=== PATIENT | female | born 1935 | race Caucasian/White ===

== ENCOUNTER 2016-03-28 17:53 | Emergency (ER) | payer MEDICARE ==
[2016-03-28] MEDS ORDERED: RX INFO: IV CONTRAST WAS GIVEN 1 EACH MISC MISCELLANE PRN ×2 (19:13→21:00)
[2016-03-28] MEDS ORDERED: SODIUM CHLORIDE 0.9% 1,000 ML IV STA (19:13)
--- NOTE | 2016-03-28 19:22 | ED ---
Recheck HPI - General Chief Complaint: Recheck/Abnormal Lab/Rx Stated Complaint: abd pain/diarrhea Time Seen by Provider: 03/28/16 18:57 Source: patient Mode of arrival: ambulatory Limitations: no limitations - History of Present Illness Initial Comments: Patient is a 80-year-old female presenting to the emergency room chief complaint of diarrhea for 5 days, and multiple episodes of vomiting. Patient reports that she's had a poor appetite. Patient states that she has not vomited for the past 2 days. Patient reports that the diarrhea and has continued with mild improvement of the diarrhea. Patient reports that she's been able to tolerate small amounts of water and bland foods. She denies any recent antibiotic use, mucinous stool, blood in the stool. Patient reports that she's been able to urinate. Patient states she is attempted Pepto-Bismol with some improvement to the diarrhea. Patient was encouraged to come to the emergency room after being checked out by medics breath. They did an abdominal x-ray which showed a possible bowel obstruction. Patient has a past surgical history significant for cholecystectomy, appendectomy and partial hysterectomy. Patient's past medical history significant for hypertension pressure and glaucoma. - Related Data Home Medications Medication Instructions Recorded Confirmed Calcium With Vitamin D 600 mg PO BID 09/19/13 03/28/16 Lisinopril-Hctz 20-12.5 mg 1 tab PO BID 09/19/13 03/28/16 [Zestoretic 20-12.5] Primidone [Mysoline] 125 mg PO BID 09/19/13 03/28/16 Fish Oil/Dha/Epa [Fish Oil 1,200 1 cap PO BID 03/23/14 03/28/16 mg Fish Oil] Fluticasone Nasal [place] [Flonase 2 spray NASAL DAILY 03/28/16 03/28/16 Nasal [place]] Propranolol HCl [Inderal Xl] 120 mg PO BID 03/28/16 03/28/16 Propylene Glycol/Peg 400/Pf 1 drop OPHTHALMIC DAILY PRN 03/28/16 03/28/16 [Systane 0.3-0.4% Eye Drops] Timolol 0.5% Ophth Soln [Timoptic 1 drop BOTH EYES DAILY 03/28/16 03/28/16 0.5% Ophth Soln] Vision Supplement (Unknown) 1 tab PO BID 03/28/16 03/28/16 Previous Rx's Medication Instructions Recorded Dicyclomine [Bentyl] 10 mg PO TID #15 capsule 03/28/16 Ondansetron [Zofran] 4 mg PO Q8HR PRN #8 tab 03/28/16 Allergies Allergy/AdvReac Type Severity Reaction Status Date / Time sulfamethoxazole Allergy Rash/Hives Verified 03/28/16 19:40 [From Bactrim] trimethoprim [From Bactrim] Allergy Rash/Hives Verified 03/28/16 19:40 Review of Systems ROS Statement: Those systems with pertinent positive or pertinent negative responses have been documented in the HPI. ROS Other: All systems not noted in ROS Statement are negative. Past Medical History Past Medical History: Hypertension History of Any Multi-Drug Resistant Organisms: None Reported Past Surgical History: Cholecystectomy, Hysterectomy Additional Past Surgical History / Comment(s): Hx. foot surgery and nasal surgery Past Anesthesia/Blood Transfusion Reactions: No Reported Reaction Past Psychological History: No Psychological Hx Reported Smoking Status: Never smoker Past Alcohol Use History: None Reported Past Drug Use History: None Reported General Exam - General Exam Comments Initial Comments: Patient is a pleasant well-appearing 80-year-old female. She does not appear to be in any acute distress. Limitations: no limitations General appearance: alert, in no apparent distress Head exam: Present: atraumatic, normocephalic, normal inspection Eye exam: Present: normal appearance, PERRL, EOMI. Absent: scleral icterus, conjunctival injection, periorbital swelling ENT exam: Present: normal exam, mucous membranes moist Neck exam: Present: normal inspection. Absent: tenderness, meningismus, lymphadenopathy Respiratory exam: Present: normal lung sounds bilaterally. Absent: respiratory distress, wheezes, rales, rhonchi, stridor Cardiovascular Exam: Present: regular rate, normal rhythm, normal heart sounds. Absent: systolic murmur, diastolic murmur, rubs, gallop, clicks GI/Abdominal exam: Present: soft, tenderness (Mild tenderness in left upper quadrant and epigastric region.), normal bowel sounds. Absent: distended, guarding, rebound, rigid Extremities exam: Present: normal inspection, full ROM, normal capillary refill. Absent: tenderness, pedal edema, joint swelling, calf tenderness Back exam: Present: normal inspection Neurological exam: Present: alert, oriented X3, CN II-XII intact Psychiatric exam: Present: normal affect, normal mood Skin exam: Present: warm, dry, intact, normal color. Absent: rash Course Vital Signs 03/28/16 03/28/16 03/29/16 18:25 23:25 00:43 Temperature 97.4 F L 97.7 F 97.8 F Pulse Rate 60 64 60 Respiratory 18 20 18 Rate Blood Pressure 163/71 162/78 147/78 O2 Sat by Pulse 98 99 98 Oximetry Medical Decision Making - Medical Decision Making Patient is an 80-year-old female presenting to emergency Department with a chief complaint of vomiting and diarrhea for the past 5 days. Patient was sent from [facility]. At [facility] Labs were obtained and revealed a negative urinalysis as well as a negative Hemoccult test. The report of the abdominal x- ray from the [facility] did reveal no free air, no fluid level changes. Stepladder in appearance in the right lower quadrant. There is also increased bowel looking to the left mid quadrant which struck to be possible ileus or an obstruction. At this time patient's labs were obtained and patient was given 1 L bolus. Labs show dehydration as well as poor renal function. Patient will be given a CT abdomen and pelvis owth oral contrast. Patient was reelvaluated and was resting comfortably and talking with family. CT shows no acute illeus or obstruction, no signs of acute abnormalities besides Evidence of enteritis. Patient Cdiff was also negative. Patient will be discharged home with Rx for Zofran and bentyl, and instructed to remain hydrated. Return parameters discussed and treatment plan understood. - Lab Data Result diagrams: 03/28/16 19:25 03/28/16 19:25 Lab Results 03/28/16 03/28/16 03/28/16 Range/Units 19:25 19:25 19:25 WBC 6.8 (3.8-10.6) k/uL RBC 3.77 L (3.80-5.40) m/uL Hgb 12.6 (11.4-16.0) gm/dL Hct 36.1 (34.0-46.0) % MCV 95.7 (80.0-100.0) fL MCH 33.3 (25.0-35.0) pg MCHC 34.8 (31.0-37.0) g/dL RDW 12.8 (11.5-15.5) % Plt Count 233 (150-450) k/uL Neutrophils % 69 % Lymphocytes % 17 % Monocytes % 8 % Eosinophils % 2 % Basophils % 0 % Neutrophils # 4.7 (1.3-7.7) k/uL Lymphocytes # 1.1 (1.0-4.8) k/uL Monocytes # 0.5 (0-1.0) k/uL Eosinophils # 0.1 (0-0.7) k/uL Basophils # 0.0 (0-0.2) k/uL Sodium 134 L (137-145) mmol/L Potassium 3.5 (3.5-5.1) mmol/L Chloride 95 L (98-107) mmol/L Carbon Dioxide 26 (22-30) mmol/L Anion Gap 13 mmol/L BUN 24 H (7-17) mg/dL Creatinine 1.40 H (0.52-1.04) mg/dL Est GFR (MDRD) Af Amer 44 (>60 ml/min/1.73 sqM) Est GFR (MDRD) Non-Af 36 (>60 ml/min/1.73 sqM) Glucose 89 (74-99) mg/dL Plasma Lactic Acid Yao 0.7 (0.7-2.0) mmol/L Calcium 9.5 (8.4-10.2) mg/dL Total Bilirubin 0.6 (0.2-1.3) mg/dL AST 51 H (14-36) U/L ALT 57 H (9-52) U/L Alkaline Phosphatase 92 (38-126) U/L Total Protein 7.2 (6.3-8.2) g/dL Albumin 4.2 (3.5-5.0) g/dL Amylase 87 (30-110) U/L Lipase 103 (23-300) U/L Urine Color Urine Appearance (Clear) Urine pH (5.0-8.0) Ur Specific [place] (1.001-1.035) Urine Protein (Negative) Urine Glucose (UA) (Negative) Urine Ketones (Negative) Urine Blood (Negative) Urine Nitrate (Negative) Urine Bilirubin (Negative) Urine Urobilinogen (<2.0) mg/dL Ur Leukocyte Esterase (Negative) Urine RBC (0-5) /hpf Urine WBC (0-5) /hpf Ur Squamous Epith Cells (0-4) /hpf Urine Bacteria (None) /hpf Hyaline Casts (0-2) /lpf Urine Mucus (None) /hpf C. difficile (EIA) Intrp (Negative) 03/28/16 03/28/16 Range/Units 19:25 23:40 WBC (3.8-10.6) k/uL RBC (3.80-5.40) m/uL Hgb (11.4-16.0) gm/dL Hct (34.0-46.0) % MCV (80.0-100.0) fL MCH (25.0-35.0) pg MCHC (31.0-37.0) g/dL RDW (11.5-15.5) % Plt Count (150-450) k/uL Neutrophils % % Lymphocytes % % Monocytes % % Eosinophils % % Basophils % % Neutrophils # (1.3-7.7) k/uL Lymphocytes # (1.0-4.8) k/uL Monocytes # (0-1.0) k/uL Eosinophils # (0-0.7) k/uL Basophils # (0-0.2) k/uL Sodium (137-145) mmol/L Potassium (3.5-5.1) mmol/L Chloride (98-107) mmol/L Carbon Dioxide (22-30) mmol/L Anion Gap mmol/L BUN (7-17) mg/dL Creatinine (0.52-1.04) mg/dL Est GFR (MDRD) Af Amer (>60 ml/min/1.73 sqM) Est GFR (MDRD) Non-Af (>60 ml/min/1.73 sqM) Glucose (74-99) mg/dL Plasma Lactic Acid Yao (0.7-2.0) mmol/L Calcium (8.4-10.2) mg/dL Total Bilirubin (0.2-1.3) mg/dL AST (14-36) U/L ALT (9-52) U/L Alkaline Phosphatase (38-126) U/L Total Protein (6.3-8.2) g/dL Albumin (3.5-5.0) g/dL Amylase (30-110) U/L Lipase (23-300) U/L Urine Color Yellow Urine Appearance Cloudy H (Clear) Urine pH 5.5 (5.0-8.0) Ur Specific [place] 1.012 (1.001-1.035) Urine Protein Trace H (Negative) Urine Glucose (UA) Negative (Negative) Urine Ketones Trace H (Negative) Urine Blood Negative (Negative) Urine Nitrate Negative (Negative) Urine Bilirubin Negative (Negative) Urine Urobilinogen <2.0 (<2.0) mg/dL Ur Leukocyte Esterase Large H (Negative) Urine RBC 3 (0-5) /hpf Urine WBC 56 H (0-5) /hpf Ur Squamous Epith Cells 4 (0-4) /hpf Urine Bacteria Rare H (None) /hpf Hyaline Casts 42 H (0-2) /lpf Urine Mucus Occasional H (None) /hpf C. difficile (EIA) Intrp Negative (Negative) - Radiology Data Radiology results: report reviewed CT abdomen and pelvis reveals possible gastroenteritis changes and Colace changes. Small hiatal hernia is noted. Gallbladders surgically absent. The appendix was not visualized. No significant inflammation is noticed in the appendix area. The CT report was read by Dr. Diamante velazco. Disposition Clinical Impression: Diarrhea, Gastroenteritis Disposition: HOME SELF-CARE Condition: Good Instructions: Acute Nausea and Vomiting (ED), Gastroenteritis (ED) Additional Instructions: Patient instructed to remain hydrated. Follow-up with primary care physician. Return to the [facility] if any alarming signs or symptoms occur. Prescriptions: Dicyclomine [Bentyl] 10 mg PO TID #15 capsule Ondansetron [Zofran] 4 mg PO Q8HR PRN #8 tab PRN Reason: Pain Referrals: Martin Crespo MD [Primary Care Provider] - 1-2 days Time of Disposition: 23:47
[2016-03-28 20:45] LABS: Basophils % (A) 0 %; CH 33.6; CHCM 35.3; Eosinophils # (A) 0.1 k/uL (0-0.7); Eosinophils % (A) 2 %; HCT 36.1 % (34.0-46.0); HDW 2.41; HGB 12.6 gm/dL (11.4-16.0); Luc # (Auto) 0.29; Luc % (Auto) 4; Lymphocytes # (A) 1.1 k/uL (1.0-4.8); Lymphocytes % (A) 17 %; MCH 33.3 pg (25.0-35.0); MCHC 34.8 g/dL (31.0-37.0); MCV 95.7 fL (80.0-100.0); Mean Platelet Volume 7.6; Monocytes # (A) 0.5 k/uL (0-1.0); Monocytes % (A) 8 %; Neutrophils # (A) 4.7 k/uL (1.3-7.7); Neutrophils % (A) 69 %; RBC 3.77 m/uL (3.80-5.40); RDW 12.8 % (11.5-15.5); WBC 6.8 k/uL (3.8-10.6); WBC (Perox) 6.83
[2016-03-28 20:50] LABS: Calcium 9.5 mg/dL (8.4-10.2); Potassium 3.5 mmol/L (3.5-5.1); Total Bilirubin 0.6 mg/dL (0.2-1.3); Total Protein 7.2 g/dL (6.3-8.2)
[2016-03-28] MEDS ORDERED: IOHEXOL 350 MG/ML 25 ML BOTTLE (ORAL USE) PO PRN (21:00)
[2016-03-28 21:18] LABS: Appearance,Urine Cloudy (Clear); Bacteria,Urine Rare /hpf; Bilirubin,Urine Negative (Negative); Glucose,Urine (UA) Negative (Negative); Ketones,Urine Trace (Negative); Leukocyte Esterase,Urine Large (Negative); Mucus,Urine Occasional /hpf; Nitrite,Urine Negative (Negative); PH, Urine 5.5 (5.0-8.0); Particle Count 9571; Protein,Urine Trace (Negative); RBC,Urine 3 /hpf (0-5); Specific Gravity,Urine 1.012 (1.001-1.035); Squamous Epithelial Cell,Urine 4 /hpf (0-4); UA Billing (MACRO vs. MICRO) MICRO; Urobilinogen,Urine <2.0 mg/dL (<2.0); WBC,Urine 56 /hpf (0-5)
--- NOTE | 2016-03-28 23:38 | CT ---
EXAMINATION TYPE: CT abdomen pelvis wo con DATE OF EXAM: 03/28/2016 10:50 PM COMPARISON: NONE HISTORY: Nausea, vomiting and diarrhea x 4-[address] DLP: 214.10 mGycm Automated exposure control for dose reduction was used. TECHNIQUE: Helical acquisition of images was performed from the lung bases through the pelvis. Oral contrast was given. No IV contrast. FINDINGS: LUNG BASES: No significant abnormality is appreciated. Minor pericardial effusion of 9 mm thickness i s noted anteriorly in the axial image 4. LIVER/GB: No significant abnormality is appreciated in the liver. Gallbladder is not well visualized. Gallbladder is probably contracted or surgically absent. Surgical clips are noted in the anterior ri ght upper abdomen. PANCREAS: No significant abnormality is seen. SPLEEN: No significant abnormality is seen. ADRENALS: No significant abnormality is seen. KIDNEYS: The left kidney is smaller in size. Mild fullness is noted in both kidneys without definite obstructing opaque stones or hydronephrosis.. RETROPERITONEAL ADENOPATHY: None visualized atherosclerotic calcification is noted in the abdominal aorta and iliac arteries. REPRODUCTIVE ORGANS: Uterus is probably surgically absent. URINARY BLADDER: No significant abnormality is seen. PELVIC ADENOPATHY: None visualized. OSSEOUS STRUCTURES: Mild multilevel degenerative changes are present in the thoracolumbar spine. BOWEL: There is small hiatal hernia. Stomach is opacified with contrast and showed mucosal wall thick ening in the antrum area and also the duodenum showed mild mucosal wall thickening with possible baylee roenteritis changes. There is also fluid distention of colonic bowel loops with mucosal thickening in the rectosigmoid colon and also rest of the colon with mild colitis changes. Small bowel loops showe d mild fluid distention. The appendix is not visualized. No significant inflammation is noted in the appendix area. IMPRESSION: 1. POSSIBLE GASTROENTERITIS CHANGES AND COLITIS CHANGES. SMALL HIATAL HERNIA IS NOTED. 2. GALLBLADDER IS PROBABLY SURGICALLY ABSENT. 3. Appendix is not visualized. No significant inflammation is noted in the appendix area.
[2016-03-29] MEDS ORDERED: ONDANSETRON 4 MG ODT STARTER PACK 2 TAB BTL PO STA (00:32)
[2016-03-29 00:44] VITALS: BP 147/78; PULSE 60; RESP 18; TEMP 97.8
== END 2016-03-29 00:44 | disposition home or self-care (01) ==
LOC: EC 17:53
DX: K52.9 Noninfective gastroenteritis and colitis, unspecified (principal); E86.0 Dehydration; K44.9 Diaphragmatic hernia without obstruction or gangrene; I10 Essential (primary) hypertension; Z79.899 Other long term (current) drug therapy; Z79.51 Long term (current) use of inhaled steroids; H40.9 Unspecified glaucoma; Z88.1 Allergy status to other antibiotic agents; Z88.2 Allergy status to sulfonamides
CPT/HCPCS: 99284; 36415; 80053; 82150; 83605; 83690; 85025; 81001; 87040; 80299; 74176; S0119; 87324

== ENCOUNTER → 2016-04-06 | Outpatient (CLI) | payer MEDICARE ==
[~2016-04-06] MED LIST: DENOSUMAB 60 MG/ML 1 ML SYRINGE SQ ONE
[2016-04-06 10:44] VITALS: BP 152/72; PULSE 58; RESP 22; TEMP 98.6
== END | disposition home or self-care (01) ==
LOC: PROCWHC3 10:05
PROVIDERS: ATTEND Family Medicine
DX: M81.0 Age-related osteoporosis without current pathological fracture (principal)
CPT/HCPCS: 96372; J0897

== ENCOUNTER → 2016-11-01 | Outpatient (CLI) | payer MEDICARE ==
--- NOTE | 2016-11-02 09:39 | MM ---
Reason for exam: screening (asymptomatic). Last mammogram was performed 1 year and 1 month ago. History: Patient is postmenopausal. Physical Findings: A clinical breast exam by your physician is recommended on an annual basis and results should be correlated with mammographic findings. MG Screening Mammo w CAD Bilateral CC and MLO view(s) were taken. Prior study comparison: October 15, 2015, bilateral MG screening mammo w CAD. September 18, 2014, bilateral MG screening mammo w CAD. August 04, 2013, bilateral MG screening mammo w CAD. The breast tissue is heterogeneously dense. This may lower the sensitivity of mammography. No significant changes when compared with prior studies. ASSESSMENT: Negative, BI-RAD 1 RECOMMENDATION: Routine screening mammogram of both breasts in 1 year.
== END | disposition home or self-care (01) ==
LOC: RADMAMWWP 11:28
PROVIDERS: ATTEND Family Medicine
DX: Z12.31 Encounter for screening mammogram for malignant neoplasm of breast (principal)

== ENCOUNTER → 2016-12-15 | Outpatient (CLI) | payer MEDICARE ==
[2016-12-15 13:23] LABS: Blood Urea Nitrogen 17 mg/dL (7-17); Non-African American GFR(MDRD) 50 (>60 ml/min/1.73 sqM)
--- NOTE | 2016-12-15 14:33 | CT ---
EXAMINATION TYPE: CT brain wo/w con DATE OF EXAM: 12/15/2016 COMPARISON: NONE HISTORY: TIA CT DLP: 2108.4 mGycm Automated exposure control for dose reduction was used. CONTRAST: CT scan of the head is performed without and with IV Contrast, patient injected with 80 mL of Visipaq ue 320. FINDINGS: There is no abnormal enhancing mass or midline shift identified. The ventricles and sulci are within normal limits in size. Changes of chronic sinusitis noted. There is moderate generalized degenerative change. Periventricula r low-attenuation suggestive of remote microvascular ischemia. No enhancing mass. Intracranial athero sclerotic changes noted. Changes of chronic sinusitis noted. Hyperostosis of the calvarium noted. IMPRESSION: 1. Degenerative and nonspecific white matter changes most typical remote microvascular ischemia. 2. Changes of chronic sinusitis.
--- NOTE | 2016-12-15 16:26 | US ---
EXAMINATION TYPE: US carotid duplex BILAT DATE OF EXAM: 12/15/2016 COMPARISON: NONE CLINICAL HISTORY: Transient Ischemic Attack G45.9. EXAM MEASUREMENTS: RIGHT: Peak Systolic Velocity (PSV) cm/sec ----- Right CCA: 62.5 ----- Right ICA: 76.4 ----- Right ECA: 57.8 ICA/CCA ratio: 1.2 RIGHT: End Diastole cm/sec ----- Right CCA: 12.7 ----- Right ICA: 19.6 ----- Right ECA: 5.0 LEFT: Peak Systolic Velocity (PSV) cm/sec ----- Left CCA: 65.2 ----- Left ICA: 81.1 ----- Left ECA: 58.4 ICA/CCA ratio: 1.2 LEFT: End Diastole cm/sec ----- Left CCA: 17.2 ----- Left ICA: 29.3 ----- Left ECA: 58.4 VERTEBRALS (direction of flow): Right Vertebral: Antegrade Left Vertebral: Antegrade Rhythm: Normal Mild plaque, no significant stenosis seen. Intimal thickening is present. IMPRESSION: Atheromatous plaquing without significant flow-limiting stenosis. Criteria for Assigning % of Stenosis / Diameter reduction (Estimation based on the indirect measurements of the internal carotid artery velocities (ICA PSV). 1. Normal (no stenosis)=ICA PSV < 125 cm/s: ratio < 2.0: ICA EDV<40 cm/s. 2. Less than 50% stenosis=ICA PSV < 125 cm/s: ratio < 2.0: ICA EDV<40 cm/s. 3. 50 to 69% stenosis=ICA PSV of 125 to 230 cm/s: ration 2.0 ? 4.0: ICA EDV 40-100 cm/s. 4. Greater than 70% stenosis to near occlusion= ICA PSV > 230 cm/s: ratio > 4.0: ICA EDV > 100 cm/s. 5. Near occlusion= ICA PSV velocities may be low or undetectable: variable ratio and ICA EDV. 6. Total occlusion=unable to detect flow.
--- NOTE | 2016-12-15 21:47 | ECHOF ---
Referral Reason:Transient Ischemic Attack G45.9 MEASUREMENTS -------- HEIGHT: 160.0 cm WEIGHT: 52.2 kg BP: RVIDd: 2.7 cm (< 3.3) IVSd: 1.0 cm (0.6 - 1.1) LVIDd: 4.2 cm (3.9 - 5.3) LVPWd: 1.0 cm (0.6 - 1.1) IVSs: 1.6 cm LVIDs: 3.0 cm LVPWs: 1.8 cm LAESV Index (A-L): 49.78 ml/m Ao Diam: 3.0 cm (2.0 - 3.7) AV Cusp: 1.6 cm (1.5 - 2.6) LA Diam: 4.4 cm (2.7 - 3.8) MV EXCURSION: 18.742 mm (> 18.000) MV EF SLOPE: 139 mm/s (70 - 150) EPSS: 0.3 cm MV E Robert: 0.93 m/s MV DecT: 196 ms MV A Robert: 0.83 m/s MV E/A Ratio: 1.12 RAP: 5.00 mmHg RVSP: 48.91 mmHg FINDINGS -------- Sinus rhythm. This was a technically good study. The left ventricular size is normal. Left ventricular wall thickness is normal. Overall left ventricular systolic function is normal with, an EF between 55 - 60 %. The right ventricle is normal in size and function. LA is severely dilated >40 ml/m2 RA appears enlarged. Aortic valve is trileaflet and is mildly thickened. The mitral valve leaflets are mildly thickened. Qopijpel-jq-rvwscw mitral regurgitation is present. Severe tricuspid regurgitation present. There is mild to moderate pulmonary hypertension. The right ventricular systolic pressure, as measured by Doppler, is 48.91mmHg. Trace/mild (physiologic) pulmonic regurgitation. The aortic root size is normal. Normal inferior vena cava with normal inspiratory collapse consistent with estimated right atrial pressure of 5 mmHg. The pericardium is normal. CONCLUSIONS -------- 1. Sinus rhythm. 2. The mitral valve leaflets are mildly thickened. 3. Ibvfppuv-yg-cqesjs mitral regurgitation is present. 4. Severe tricuspid regurgitation present. 5. There is mild to moderate pulmonary hypertension. 6. The right ventricular systolic pressure, as measured by Doppler, is 48.91mmHg. 7. Trace/mild (physiologic) pulmonic regurgitation. 8. The aortic root size is normal. 9. Normal inferior vena cava with normal inspiratory collapse consistent with estimated right atrial pressure of 5 mmHg. 10. The pericardium is normal. 11. This was a technically good study. 12. The left ventricular size is normal. 13. Left ventricular wall thickness is normal. 14. Overall left ventricular systolic function is normal with, an EF between 55 - 60 %. 15. The right ventricle is normal in size and function. 16. LA is severely dilated >40 ml/m2 17. RA appears enlarged. 18. Aortic valve is trileaflet and is mildly thickened. [employer]: Kyara Singh RDCS
== END | disposition home or self-care (01) ==
LOC: RADCTMAIN 12:28
PROVIDERS: ATTEND Family Medicine
DX: I65.29 Occlusion and stenosis of unspecified carotid artery (principal); R90.82 White matter disease, unspecified; G31.9 Degenerative disease of nervous system, unspecified
CPT/HCPCS: 93306; 82565; 84520; 93880; 70470; 36415; Q9967

== ENCOUNTER → 2017-08-27 | Outpatient (CLI) | payer MEDICARE ==
--- NOTE | 2017-08-27 07:47 | US ---
EXAMINATION TYPE: US duplex aorta DATE OF EXAM: 08/27/2017 COMPARISON: CT CLINICAL HISTORY: I70.0 Atherosclerosis of aorta; controlled HTN EXAM MEASUREMENTS: Abdominal Aorta: Proximal: 2.0cm A/P Mid: 1.7cm A/P Distal: 1.6cm Transverse Bifurcation: 1.2cm A/P Right JAYSON and 1.1cm Transverse A/P. Intimal wall changes are noted throughout aorta and into common iliac arteries. IMPRESSION: Moderate atherosclerosis of the abdominal aorta with no sonographic evidence of abdominal aortic aneurysm.
== END | disposition home or self-care (01) ==
LOC: RADUSWWP 06:57
PROVIDERS: ATTEND Family Medicine
DX: I70.0 Atherosclerosis of aorta (principal)
CPT/HCPCS: 93979

== ENCOUNTER → 2017-12-10 | Outpatient (CLI) | payer MEDICARE ==
--- NOTE | 2017-12-10 18:19 | BD ---
EXAMINATION TYPE: Axial Bone Density DATE OF EXAM: 12/10/2017 COMPARISON: 10-15-2015 CLINICAL HISTORY: 82-year-old female postmenopausal screening for osteoporosis Height: 62 IN Weight: 119 LBS FRAX RISK QUESTIONS: Secondary Osteoporosis: 3. Menopause before 45: YES AGE 39 RISK FACTORS HISTORY OF: Family History of Osteoporosis: YES MOTHER, SISTER Active: YES Diet low in dairy products/other sources of calcium: YES Postmenopausal woman: AGE 39 MEDICATIONS: Osteoporosis Medications: NOT NOW Which medication: Prolia FOSAMAX How Long: PROLIA 3 YEARS AGO. FOSAMAX FOR 2 YEARS Additional Medications: CALCIUM, VIT D, PROPRANOLOL HCL, PRIMIDONE, LISINOPRIL, FLUTICASONE, TIMOLOL, ASPIRIN, FISH OIL, VISION SUPPLEMENT, SYSTANE EYE DROPS EXAM MEASUREMENTS: Bone mineral densitometry was performed using the [employer]. Bone mineral density as measured about the Lumbar spine is: ----- L1-L4(G/cm2): 0.939 T Score Values are as follows: ----- L2: -2.4 ----- L3: -2.0 ----- L4: -1.8 ----- L1-L4: -2.0 Bone mineral density has: Increased 1.8% since study of: 10/15/2015 Bone mineral density about the R hip (g/cm2): 0.733 Bone mineral density about the L hip (g/cm2): 0.732 T Score values are as follows: -----R Neck: -2.2 -----L Neck: -2.2 -----R Total: -2.1 -----L Total: -2.1 Bone mineral density has: Decreased -3.4% since study of: 10/15/2015 IMPRESSION: Osteopenia (T Score between -2.5 and -1). There is slightly increased risk of fracture and the patient may be considered for treatment. Re-Screen 2-5 years. NOTE: T-SCORE=SD OF THE YOUNG ADULT MEAN.
--- NOTE | 2017-12-11 09:30 | MM ---
Reason for exam: screening (asymptomatic). Last mammogram was performed 1 year and 1 month ago. History: Patient is postmenopausal. Physical Findings: A clinical breast exam by your physician is recommended on an annual basis and results should be correlated with mammographic findings. MG Screening Mammo w CAD Bilateral CC and MLO view(s) were taken. Prior study comparison: November 01, 2016, bilateral MG screening mammo w CAD. October 15, 2015, bilateral MG screening mammo w CAD. There are scattered fibroglandular densities. No significant changes when compared with prior studies. ASSESSMENT: Benign, BI-RAD 2 RECOMMENDATION: Routine screening mammogram of both breasts in 1 year.
== END ==
LOC: RADMAMWWP 09:51
PROVIDERS: ATTEND Family Medicine
DX: Z12.31 Encounter for screening mammogram for malignant neoplasm of breast (principal); M85.80 Other specified disorders of bone density and structure, unspecified site; M81.0 Age-related osteoporosis without current pathological fracture
CPT/HCPCS: 77067; 77080

== ENCOUNTER → 2019-02-10 | Outpatient (CLI) | payer MEDICARE ==
--- NOTE | 2019-02-11 11:24 | MM ---
Reason for exam: screening (asymptomatic). Last mammogram was performed 1 year and 2 months ago. History: Patient is postmenopausal. Physical Findings: A clinical breast exam by your physician is recommended on an annual basis and results should be correlated with mammographic findings. MG 3D Screening Mammo W/Cad Bilateral CC and MLO view(s) were taken. Prior study comparison: December 10, 2017, bilateral MG screening mammo w CAD. November 01, 2016, bilateral MG screening mammo w CAD. The breast tissue is heterogeneously dense. This may lower the sensitivity of mammography. There is no discrete abnormality. No significant changes when compared with prior studies. ASSESSMENT: Negative, BI-RAD 1 RECOMMENDATION: Routine screening mammogram of both breasts in 1 year.
== END ==
LOC: RADMAMWWP 10:37
PROVIDERS: ATTEND Family Medicine
DX: Z12.31 Encounter for screening mammogram for malignant neoplasm of breast (principal)
CPT/HCPCS: 77063; 77067

== ENCOUNTER → 2020-02-13 | Outpatient (CLI) | payer MEDICARE ==
--- NOTE | 2020-02-13 16:08 | BD ---
EXAMINATION TYPE: Axial Bone Density DATE OF EXAM: 02/13/2020 COMPARISON: 12.10.2017 CLINICAL HISTORY: 84 YR OLD FEMALE.....ICD-10 CODE: Z78.0 MENOPAUSAL Height: 60.3 Weight: 117 FRAX RISK QUESTIONS: Glucocorticoids (More than 3mos): YES (Ex: prednisone, prednisolone, methylprednisolone, dexamethasone, and hydrocortisone). RISK FACTORS HISTORY OF: Family History of Osteoporosis: UNKNOWN Diet low in dairy products/other sources of calcium: YES Postmenopausal woman: YES, AT ABOUT 49 Lost more than 2 inches in height since high school: YES Frequent falls: SHAKEY, ELDERLY Hyperparathyroidism: NO Adrenal Insufficiency: NO MEDICATIONS: Prednisone or other steroids: FLONASE, SINGULAIR, FOR MANY YRS Osteoporosis Medications: NONE NOW, ONLY IN THE PAST Additional Medications: BP MEDS, CHOLESTEROL MEDS, VIT D WITH CALCIUM Additional History: HYPERTENSION, TREMORS, HEART CONDITION, CHOLESTEROL EXAM MEASUREMENTS: Bone mineral densitometry was performed using the [employer] System. Bone mineral density as measured about the Lumbar spine is: ----- L1-L4(G/cm2): 0.935 T Score Values are as follows: ----- L1: -2.0 ----- L2: -2.2 ----- L3: -1.7 ----- L4: -2.5 ----- L1-L4: -2.0 Bone mineral density has: Decreased -0.5% SINCE...12.10.2017 STUDY Bone mineral density about the R hip (g/cm2): 0.718 Bone mineral density about the L hip (g/cm2): 0.742 T Score values are as follows: -----R Neck: -2.1 -----L Neck: -2.1 -----R Total: -2.3 -----L Total: -2.1 Bone mineral density has: Decreased -1.5% SINCE....12.10.2017 STUDY FRAX%s: THERE IS A 22.5% CHANCE FOR A MAJOR OSTEOPOROTIC FX AND 8.6% FOR HIP.....PROBABILITY FOR FX IN 10 YRS TIME IMPRESSION: Osteopenia (T Score between -2.5 and -1). There is slightly increased risk of fracture and the patient may be considered for treatment. Re-Screen 2-5 years. NOTE: T-SCORE=SD OF THE YOUNG ADULT MEAN.
--- NOTE | 2020-02-16 10:34 | MM ---
Reason for exam: screening (asymptomatic). Last mammogram was performed 1 year ago. History: Patient is postmenopausal. Physical Findings: A clinical breast exam by your physician is recommended on an annual basis and results should be correlated with mammographic findings. MG 3D Screening Mammo W/Cad Bilateral CC and MLO view(s) were taken. Prior study comparison: February 10, 2019, bilateral MG 3d screening mammo w/cad. December 10, 2017, bilateral MG screening mammo w CAD. There are scattered fibroglandular densities. There is no discrete abnormality. No significant changes when compared with prior studies. ASSESSMENT: Negative, BI-RAD 1 RECOMMENDATION: Routine screening mammogram of both breasts in 1 year.
== END | disposition home or self-care (01) ==
LOC: RADMAMWWP 09:48
PROVIDERS: ATTEND Family Medicine
DX: Z12.31 Encounter for screening mammogram for malignant neoplasm of breast (principal); M85.80 Other specified disorders of bone density and structure, unspecified site; Z78.0 Asymptomatic menopausal state
CPT/HCPCS: 77063; 77067; 77080

== ENCOUNTER 2020-04-23 11:15 | Emergency (ER) | payer MEDICARE ==
[2020-04-23 11:30] VITALS: TEMP 97.6
--- NOTE | 2020-04-23 11:53 | ED ---
General Adult HPI - General Chief complaint: Weakness Stated complaint: weakness, fall Time Seen by Provider: 04/23/20 11:34 Source: patient, family Mode of arrival: ambulatory Limitations: no limitations - History of Present Illness Initial comments: Dictation was produced using [employer] dictation software. please excuse any grammatical, word or spelling errors. This patient was cared for during a federal and state declared state of emergency secondary to Covid 19 Chief Complaint: 84-year-old female with past medical history of chronic tremors, hypertension, stroke presents to the emergency department for weakness History of Present Illness: 84-year-old female she is a poor historian. Patient states that today she fell. Over the last several weeks she's been complaining of worsening weakness. She did see a neurologist and her primary care physician regarding this. She was prescribed physical therapy. She was given a list of exercises to do in order to improve some of her strength. Patient states that today she stood up rapidly when she felt weak on her feet and then decided to sit back down. She feels generally weak however reports worsening weakness in her arms worse in her legs. She states she is so weak she can keep her head up. Patient has a chronic tremor. Sounds like according to her that the y've been moving around her medications. She's never been told that she had Parkinson's. The ROS documented in this emergency department record has been reviewed and confirmed by me. Those systems with pertinent positive or negative responses have been documented in the HPI. All other systems are other negative and/or noncontributory. PHYSICAL EXAM: General Impression: Alert and oriented x3, not in acute distress, tremulous HEENT: Normocephalic atraumatic, extra-ocular movements intact, pupils equal and reactive to light bilaterally, mucous membranes moist. Cardiovascular: Heart regular rate and rhythm Chest: Able to complete full sentences, no retractions, no tachypnea Abdomen: abdomen soft, non-tender, non-distended, no organomegaly Musculoskeletal: Pulses present and equal in all extremities, no peripheral edema Motor: no focal deficits noted Neurological: CN II-XII grossly intact, no focal motor or sensory deficits noted Skin: Intact with no visualized rashes Psych: Normal affect and mood ED course: 84-year-old female presents with generalized weakness. As upon arrival are within acceptable limits. Laboratory evaluation obtained. CBC unremarkable. Coag panel is negative. Metabolic panel shows mild hypomagnesemia 1.3. Computed tomography scan of the head and C-spine shows no acute issues. Pelvis x-ray and chest x-ray shows no acute processes. EKG interpretation: Ventricular rate 57, sinus bradycardia,. 166, QRS 116, QTC 428. No TX prolongation, no QTC prolongation, no ST or T-wave changes noted. Note EKG for comparison. Overall, this EKG is unremarkable Labs and imaging results were discussed with patient. Patient given magnesium oxide oral pill. Patient will be given prescription for magnesium patient is told to increase her magnesium in her diet. Patient is agreeable for discharge per she is advised follow-up with her primary care physician. - Related Data Home Medications Medication Instructions Recorded Confirmed Calcium With Vitamin D 600 mg PO BID 09/19/13 01/11/17 Lisinopril-Hctz 20-12.5 mg 1 tab PO BID 09/19/13 01/11/17 [Zestoretic 20-12.5] Primidone [Mysoline] 125 mg PO BID 09/19/13 01/11/17 Fish Oil/Dha/Epa [Fish Oil 1,200 1 cap PO BID 03/23/14 01/11/17 mg Fish Oil] Fluticasone Nasal [place] [Flonase 2 spray NASAL BID 03/28/16 01/11/17 Nasal [place]] Propranolol HCl [Inderal Xl] 120 mg PO BID 03/28/16 01/11/17 Propylene Glycol/Peg 400/Pf 1 drop OPHTHALMIC DAILY PRN 03/28/16 01/11/17 [Systane 0.3-0.4% Eye Drops] Timolol 0.5% Ophth Soln [Timoptic 1 drop BOTH EYES DAILY 03/28/16 01/11/17 0.5% Ophth Soln] Aspirin [Adult Low Dose Aspirin EC] 81 mg PO QAM 01/10/17 01/11/17 Vit C/E/Zn/Coppr/Lutein/Zeaxan 1 each PO BID 01/10/17 01/11/17 [Preservision Areds 2 Softgel] Previous Rx's Medication Instructions Recorded Magnesium Oxide 400 mg PO DAILY 5 Days #5 tablet 04/23/20 Allergies Allergy/AdvReac Type Severity Reaction Status Date / Time sulfamethoxazole Allergy Rash/Hives Verified 04/23/20 13:32 [From Bactrim] trimethoprim [From Bactrim] Allergy Rash/Hives Verified 04/23/20 13:32 Review of Systems ROS Statement: Those systems with pertinent positive or pertinent negative responses have been documented in the HPI. ROS Other: All systems not noted in ROS Statement are negative. Past Medical History Past Medical History: CVA/TIA, Hypertension Additional Past Medical History / Comment(s): tremors History of Any Multi-Drug Resistant Organisms: None Reported Past Surgical History: Cholecystectomy, Hysterectomy Additional Past Surgical History / Comment(s): bital foot surgery and nasal surgery for deviated septum, cataracts, glaucoma stents Past Anesthesia/Blood Transfusion Reactions: No Reported Reaction Past Psychological History: No Psychological Hx Reported Smoking Status: Never smoker Past Alcohol Use History: None Reported Past Drug Use History: None Reported - Past Family History Father Family Medical History: Myocardial Infarction ([place]) Mother Additional Family Medical History / Comment(s): parkinsons General Exam Limitations: no limitations Course Vital Signs 04/23/20 11:24 Temperature 97.6 F Pulse Rate 63 Respiratory 18 Rate Blood Pressure 153/78 O2 Sat by Pulse 99 Oximetry Medical Decision Making - Lab Data Result diagrams: 04/23/20 12:24 04/23/20 12:24 Lab Results 04/23/20 04/23/20 04/23/20 Range/Units 12:24 12:24 12:24 WBC 5.5 (3.8-10.6) k/uL RBC 3.38 L (3.80-5.40) m/uL Hgb 11.7 (11.4-16.0) gm/dL Hct 33.4 L (34.0-46.0) % MCV 98.6 (80.0-100.0) fL MCH 34.6 (25.0-35.0) pg MCHC 35.1 (31.0-37.0) g/dL RDW 13.2 (11.5-15.5) % Plt Count 223 (150-450) k/uL MPV 8.0 Neutrophils % 73 % Lymphocytes % 17 % Monocytes % 6 % Eosinophils % 2 % Basophils % 1 % Neutrophils # 4.0 (1.3-7.7) k/uL Lymphocytes # 0.9 L (1.0-4.8) k/uL Monocytes # 0.3 (0-1.0) k/uL Eosinophils # 0.1 (0-0.7) k/uL Basophils # 0.1 (0-0.2) k/uL PT (9.0-12.0) sec INR (<1.2) APTT (22.0-30.0) sec Sodium 135 L (137-145) mmol/L Potassium 3.8 (3.5-5.1) mmol/L Chloride 95 L (98-107) mmol/L Carbon Dioxide 32 H (22-30) mmol/L Anion Gap 8 mmol/L BUN 19 H (7-17) mg/dL Creatinine 0.82 (0.52-1.04) mg/dL Est GFR (CKD-EPI)AfAm 76 (>60 ml/min/1.73 sqM) Est GFR (CKD-EPI)NonAf 66 (>60 ml/min/1.73 sqM) Glucose 114 H (74-99) mg/dL Plasma Lactic Acid Yao 1.2 (0.7-2.0) mmol/L Calcium 10.5 H (8.4-10.2) mg/dL Magnesium 1.3 L (1.6-2.3) mg/dL Total Bilirubin 0.7 (0.2-1.3) mg/dL AST 38 H (14-36) U/L ALT 17 (4-34) U/L Alkaline Phosphatase 73 (38-126) U/L Total Protein 7.2 (6.3-8.2) g/dL Albumin 4.1 (3.5-5.0) g/dL 04/23/20 Range/Units 12:24 WBC (3.8-10.6) k/uL RBC (3.80-5.40) m/uL Hgb (11.4-16.0) gm/dL Hct (34.0-46.0) % MCV (80.0-100.0) fL MCH (25.0-35.0) pg MCHC (31.0-37.0) g/dL RDW (11.5-15.5) % Plt Count (150-450) k/uL MPV Neutrophils % % Lymphocytes % % Monocytes % % Eosinophils % % Basophils % % Neutrophils # (1.3-7.7) k/uL Lymphocytes # (1.0-4.8) k/uL Monocytes # (0-1.0) k/uL Eosinophils # (0-0.7) k/uL Basophils # (0-0.2) k/uL PT 10.9 (9.0-12.0) sec INR 1.0 (<1.2) APTT 23.9 (22.0-30.0) sec Sodium (137-145) mmol/L Potassium (3.5-5.1) mmol/L Chloride (98-107) mmol/L Carbon Dioxide (22-30) mmol/L Anion Gap mmol/L BUN (7-17) mg/dL Creatinine (0.52-1.04) mg/dL Est GFR (CKD-EPI)AfAm (>60 ml/min/1.73 sqM) Est GFR (CKD-EPI)NonAf (>60 ml/min/1.73 sqM) Glucose (74-99) mg/dL Plasma Lactic Acid Yao (0.7-2.0) mmol/L Calcium (8.4-10.2) mg/dL Magnesium (1.6-2.3) mg/dL Total Bilirubin (0.2-1.3) mg/dL AST (14-36) U/L ALT (4-34) U/L Alkaline Phosphatase (38-126) U/L Total Protein (6.3-8.2) g/dL Albumin (3.5-5.0) g/dL Disposition Clinical Impression: Weakness Disposition: HOME SELF-CARE Condition: Good Instructions (If sedation given, give patient instructions): Hypomagnesemia (ED) Prescriptions: Magnesium Oxide 400 mg PO DAILY 5 Days #5 tablet Is patient prescribed a controlled substance at d/c from ED?: No Referrals: Martin Crespo MD [Primary Care Provider] - 1-2 days Time of Disposition: 13:34
--- NOTE | 2020-04-23 12:51 | XR ---
EXAMINATION TYPE: XR pelvis AP view DATE OF EXAM: 04/23/2020 CLINICAL HISTORY: pain TECHNIQUE: Single view the pelvis is submitted. FINDINGS: No evidence for fracture, dislocation or bony lesion. Joint spaces are well-preserved. S I joints appear symmetric. IMPRESSION: 1. No acute fracture or dislocation seen. ICD 10 NO FRACTURE, INITIAL EVALUATION
--- NOTE | 2020-04-23 12:52 | XR ---
EXAMINATION TYPE: XR chest 1V portable DATE OF EXAM: 04/23/2020 HISTORY: Shortness of breath. COMPARISON: None. TECHNIQUE: Single view of the chest is submitted. FINDINGS: Demonstrated are scattered senescent parenchymal change. There is no evidence for focal infiltrate. The heart is stable. Hilar and mediastinal structures are within normal limits. Degenerative changes are seen of the dorsal spine. IMPRESSION: 1. Chronic changes without evidence for acute pulmonary disease.
--- NOTE | 2020-04-23 12:56 | CT ---
EXAMINATION TYPE: CT brain cspine wo con DATE OF EXAM: 04/23/2020 COMPARISON: CT brain December 15, 2016 HISTORY: Fall injury with headache and neck pain. CT DLP: 1247.2 mGycm. Automated Exposure Control for Dose Reduction was Utilized. TECHNIQUE: CT scan of the head and cervical spine are performed without contrast. FINDINGS: There is no acute intracranial hemorrhage or midline shift identified. Mild ventricular a nd sulcal prominence redemonstrated. Moderate low attenuation in the deep and periventricular white m atter redemonstrated. Completely opacified left frontal sinus with thickened sclerotic wall redemonst rated. Completely opacified anterior left ethmoid sinuses redemonstrated. Small air-fluid level left maxillary sinus again seen, adjacent wall is slightly thickened and sclerotic versus opposite right s barrett. Neither lens is well seen new from prior study, correlate for interval cataract surgery. Cervical spine is visualized in its entirety from C1 through upper thoracic levels and demonstrates s atisfactory alignment without evidence of acute fracture or dislocation. Prevertebral soft tissue ap pears within normal limits. The C1-C2 articulation is within normal limits on the coronal images. V ertebral body heights are maintained. Moderate disc space narrowing C5-C6 and C6-C7 level with mild a nterior spurring. Spinal canal grossly preserved. Heterogeneous slightly enlarged thyroid, correlate for underlying goiter. Lung apices show no pneumothorax. IMPRESSION: 1. There is no acute fracture or dislocation evident in the cervical spine. 2. No acute intracranial hemorrhage or midline shift is seen. Paranasal sinus disease redemonstrated unchanged from prior. Cannot exclude acute left maxillary sinus component.
[2020-04-23 12:58] LABS: Basophils # (A) 0.1 k/uL (0-0.2); Basophils % (A) 1 %; Eosinophils # (A) 0.1 k/uL (0-0.7); Eosinophils % (A) 2 %; HCT 33.4 % (34.0-46.0); HGB 11.7 gm/dL (11.4-16.0); Lymphocytes # (A) 0.9 k/uL (1.0-4.8); Lymphocytes % (A) 17 %; MCH 34.6 pg (25.0-35.0); MCHC 35.1 g/dL (31.0-37.0); MCV 98.6 fL (80.0-100.0); Monocytes # (A) 0.3 k/uL (0-1.0); Monocytes % (A) 6 %; Neutrophils % (A) 73 %; Platelet Count 223 k/uL (150-450); RBC 3.38 m/uL (3.80-5.40); RDW 13.2 % (11.5-15.5); WBC 5.5 k/uL (3.8-10.6)
[2020-04-23 13:08] LABS: Partial Thromboplastin Time 23.9 sec (22.0-30.0); Prothrombin Time 10.9 sec (9.0-12.0)
[2020-04-23 13:09] LABS: Albumin 4.1 g/dL (3.5-5.0); Calcium 10.5 mg/dL (8.4-10.2); Magnesium 1.3 mg/dL (1.6-2.3); Total Bilirubin 0.7 mg/dL (0.2-1.3); Total Protein 7.2 g/dL (6.3-8.2)
[2020-04-23 13:12] LABS: Potassium 3.8 mmol/L (3.5-5.1)
[2020-04-23] MEDS ORDERED: MAGNESIUM OXIDE 400 MG TAB PO STA (13:29)
[2020-04-23 14:31] VITALS: BP 165/74; PULSE 66; RESP 16
== END 2020-04-23 14:30 | disposition home or self-care (01) ==
LOC: EC 11:15
DX: R53.1 Weakness (principal); E83.42 Hypomagnesemia; I10 Essential (primary) hypertension; Z79.82 Long term (current) use of aspirin; Z79.899 Other long term (current) drug therapy; Z88.1 Allergy status to other antibiotic agents; Z88.2 Allergy status to sulfonamides; Z90.49 Acquired absence of other specified parts of digestive tract; Z90.710 Acquired absence of both cervix and uterus; Z98.42 Cataract extraction status, left eye; Z98.41 Cataract extraction status, right eye; Z86.73 Personal history of transient ischemic attack (TIA), and cerebral infarction without residual deficits
CPT/HCPCS: 36415; 70450; 71045; 72125; 72170; 80053; 83605; 83735; 85025; 85610; 85730; 93005; 99285

== ENCOUNTER 2020-07-12 09:45 | Emergency (ER) | payer MEDICARE ==
[2020-07-12 09:52] VITALS: RESP 18; TEMP 99.3
--- NOTE | 2020-07-12 10:30 | ED ---
ENT HPI - General Chief complaint: Dental/Oral Stated complaint: dental pain/facial swelling Time Seen by Provider: 07/12/20 10:04 Source: patient Mode of arrival: wheelchair Limitations: no limitations - History of Present Illness Initial comments: Patient is an 84-year-old female with history of hypertension, presenting to the emergency Department with complaints of right-sided dental pain as well as some mild swelling. She states the dental pain started about 3 days ago and then when she woke up this morning she noticed the swelling. She denies any fevers or chills. She states she has not followed up with her dentist in almost a year since covid started, she was too nervous. She states she has been taking Tylenol for her pain which does help. She denies having a headache, no blurry vision, no sore throat. She denies any other symptoms at this time. Upon arrival to the ER, she is hypertensive, rest of vitals are normal. - Related Data Home Medications Medication Instructions Recorded Confirmed Calcium With Vitamin D 600 mg PO BID 09/19/13 04/23/20 Lisinopril-Hctz 20-12.5 mg 2 tab PO DAILY 09/19/13 04/23/20 [Zestoretic 20-12.5] Primidone [Mysoline] 125 mg PO BID 09/19/13 04/23/20 Fish Oil/Dha/Epa [Fish Oil 1,200 1 cap PO BID 03/23/14 04/23/20 mg Fish Oil] Fluticasone Nasal [place] [Flonase 2 spray NASAL BID 03/28/16 04/23/20 Nasal [place]] Propranolol HCl [Inderal Xl] 80 mg PO BID 03/28/16 04/23/20 Propylene Glycol/Peg 400/Pf 1 drop OPHTHALMIC QID PRN 03/28/16 04/23/20 [Systane 0.3-0.4% Eye Drops] Aspirin [Adult Low Dose Aspirin EC] 81 mg PO QAM 01/10/17 04/23/20 Vit C/E/Zn/Coppr/Lutein/Zeaxan 1 tab PO BID 01/10/17 04/23/20 [Preservision Areds 2 Softgel] Carboxymethylcellulose Sodium 1 drop BOTH EYES DAILY PRN 04/23/20 04/23/20 [Refresh Tears] Previous Rx's Medication Instructions Recorded Magnesium Oxide 400 mg PO DAILY 5 Days #5 tablet 04/23/20 Penicillin V Potassium [Pen Vee K] 500 mg PO QID 7 Days #28 tablet 07/12/20 Allergies Allergy/AdvReac Type Severity Reaction Status Date / Time sulfamethoxazole Allergy Rash/Hives Verified 07/12/20 09:52 [From Bactrim] trimethoprim [From Bactrim] Allergy Rash/Hives Verified 07/12/20 09:52 Review of Systems ROS Statement: Those systems with pertinent positive or pertinent negative responses have been documented in the HPI. ROS Other: All systems not noted in ROS Statement are negative. Past Medical History Past Medical History: Hypertension Additional Past Medical History / Comment(s): tremors History of Any Multi-Drug Resistant Organisms: None Reported Past Surgical History: Cholecystectomy, Hysterectomy Additional Past Surgical History / Comment(s): bital foot surgery and nasal surgery for deviated septum, cataracts, glaucoma stents, mysthanis gravis Past Anesthesia/Blood Transfusion Reactions: No Reported Reaction Past Psychological History: No Psychological Hx Reported Smoking Status: Never smoker Past Alcohol Use History: None Reported Past Drug Use History: None Reported - Past Family History Father Family Medical History: Myocardial Infarction ([place]) Mother Additional Family Medical History / Comment(s): parkinsons General Exam - General Exam Comments Initial Comments: GENERAL: Patient is well-developed and well-nourished. Patient is nontoxic and in no acu te distress. HEAD: Atraumatic, normocephalic. EYES: Pupils equal round and reactive to light, extraocular movements intact, sclera anicteric, conjunctiva are normal. Eyelids were unremarkable. ENT: TMs normal, nares patent, oropharynx clear without exudates. Moist mucous membranes. Patient has no visible dental abscess, she does have pain with palpation of teeth #2 and 3 with multiple fillings noted. Patient also has some mild swelling noted to the right cheek. This does not fall below the right jawline. NECK: Normal range of motion, supple without lymphadenopathy or JVD. LUNGS: Unlabored respirations. Breath sounds clear to auscultation bilaterally and equal. No wheezes rales or rhonchi. HEART: Regular rate and rhythm without murmurs, rubs or gallops. ABDOMEN: Soft, nontender, normoactive bowel sounds. No guarding, no rebound. No masses appreciated. : Deferred MUSCULOSKELETAL: Normal extremities with adequate strength and normal range of motion, no pitting or edema. No clubbing or cyanosis. NEUROLOGICAL: Patient is alert and oriented x 3. Motor and sensory are also intact. Cranial nerves II through XII grossly intact. Symmetrical smile. Normal speech, normal gait. PSYCH: Normal mood, normal affect. SKIN: Warm, Dry, normal turgor, no rashes or lesions noted. Limitations: no limitations Course Vital Signs 07/12/20 09:47 Temperature 99.3 F Pulse Rate 79 Respiratory 18 Rate Blood Pressure 206/84 O2 Sat by Pulse 96 Oximetry Medical Decision Making - Medical Decision Making Patient is an 84-year-old female with history of hypertension, presenting with a possible dental abscess. She has had pain for 3 days, mild swelling over the face that started today. No fevers or chills, she was hypertensive upon arrival rest of vitals are normal. There is no visible dental abscess seen. Patient will be started on penicillin. I did urge her to call her dentist today as well. She is stable for discharge. Return parameters were discussed with her and she verbalized understanding. Case discussed with Dr. Mauricio. Disposition Clinical Impression: Toothache, Dental abscess Disposition: HOME SELF-CARE Condition: Stable Instructions (If sedation given, give patient instructions): Dental Abscess (ED) Additional Instructions: Please return to the Emergency Department if symptoms worsen or any other concerns. Take antibiotics as prescribed. Call your dentist today as discussed. Continue with Tylenol for discomfort. Prescriptions: Penicillin V Potassium [Pen Vee K] 500 mg PO QID 7 Days #28 tablet Is patient prescribed a controlled substance at d/c from ED?: No Referrals: Martin Crespo MD [Primary Care Provider] - 1-2 days Time of Disposition: 10:29
[2020-07-12 10:59] VITALS: BP 148/95; PULSE 82
== END 2020-07-12 10:59 | disposition home or self-care (01) ==
LOC: EC 09:45
DX: K04.7 Periapical abscess without sinus (principal); I10 Essential (primary) hypertension; Z90.49 Acquired absence of other specified parts of digestive tract; Z90.710 Acquired absence of both cervix and uterus
CPT/HCPCS: 99283

== ENCOUNTER → 2022-02-13 | Outpatient (CLI) | payer MEDICARE ==
--- NOTE | 2022-02-13 12:37 | BD ---
EXAMINATION TYPE: Axial Bone Density DATE OF EXAM: 02/13/2022 COMPARISON: NONE CLINICAL HISTORY: 86 years year old Female. ICD-10 CODE: M81.0 Age-related osteoporosis without curr ent pathological Height: 5 FT 1 IN Weight: 99.7 FRAX RISK QUESTIONS: Alcohol (3 or more units per day): NO Family History (Parent hip fracture): NO Glucocorticoids (More than 3mos): YES (Ex: prednisone, prednisolone, methylprednisolone, dexamethasone, and hydrocortisone). History of Fracture in Adulthood: NO Secondary Osteoporosis: 1. Type 1 Diabetes: NO 2. Hyperthyroidism: NO 3. Menopause before 45: NO 4. Malnutrition: NO 5. Chronic liver disease: NO Rheumatoid Arthritis: NO Current Tobacco Use: NO RISK FACTORS HISTORY OF: Hip Fracture (Right/Left): When: Spine Fracture: When: History of Wrist Fracture: When: Surgery to Spine/Hip(right/left)/Wrist (right/left): NO Family History of Osteoporosis: YES Active: FOR HER AGE Diet low in dairy products/other sources of calcium: NO Postmenopausal woman: YES Take estrogen and/or progesterone medications: NO Lost more than 2 inches in height since high school: YES Frequent falls: NO Poor Health: FAIR Hyperparathyroidism: NO Adrenal Insufficiency: NO MEDICATIONS: Additional Medications: Additional History: BLOOD PRESSURE MEDS, HEART CONDITION, TREMORS, MYASTHENIA GRAVIS MEDS, CHOLESTERO L MEDS, EXAM MEASUREMENTS: Bone mineral densitometry was performed using the [employer] System. Bone mineral density as measured about the Lumbar spine is: ----- L1-L4(G/cm2): 0.916 T Score Values are as follows: ----- L1: -2.1 ----- L2: -2.7 ----- L3: -1.9 ----- L4: -2.3 ----- L1-L4: -2.2 Bone mineral density has: DECREASED -2.2 % since study of: 2019 Bone mineral density about the R hip (g/cm2): 0.754 Bone mineral density about the L hip (g/cm2): 0.740 T Score values are as follows: -----R Neck: -2.0 -----L Neck: -2.1 -----R Total: -2.4 -----L Total: -2.2 Bone mineral density has: DECREASED -1.1 % since study of: 2019 FRAX%s: The graph provided illustrates a 4.5 % chance for a major osteoporotic fx and a 2.0 % chance for the hips probability for fx in 10 years time. IMPRESSION: Osteopenia (T Score between -2.5 and -1). There is slightly increased risk of fracture and the patient may be considered for treatment. Re-Screen 2-5 years. NOTE: T-SCORE=SD OF THE YOUNG ADULT MEAN.
== END | disposition home or self-care (01) ==
LOC: RADBDWWP 11:16
PROVIDERS: ATTEND Family Medicine
DX: M85.89 Other specified disorders of bone density and structure, multiple sites (principal)
CPT/HCPCS: 77080

== ENCOUNTER 2022-03-30 14:30 | Inpatient (IN) | payer MEDICARE ==
[2022-03-30 15:41] LABS: Basophils % (A) 1 %; Eosinophils # (A) 0.3 k/uL (0-0.7); Eosinophils % (A) 4 %; HCT 32.6 % (34.0-46.0); Lymphocytes % (A) 16 %; MCH 33.9 pg (25.0-35.0); MCHC 33.8 g/dL (31.0-37.0); MCV 100.2 fL (80.0-100.0); Macrocytosis Slight; Mean Platelet Volume 9.9; Monocytes # (A) 0.3 k/uL (0-1.0); Monocytes % (A) 5 %; Neutrophils # (A) 4.4 k/uL (1.3-7.7); Neutrophils % (A) 70 %; Platelet Count 177 k/uL (150-450); RBC 3.25 m/uL (3.80-5.40); RDW 13.6 % (11.5-15.5); WBC 6.2 k/uL (3.8-10.6)
[2022-03-30 15:49] LABS: INR 1.1 (<1.2); Partial Thromboplastin Time 23.3 sec (22.0-30.0); Prothrombin Time 11.1 sec (9.0-12.0)
[2022-03-30 15:50] LABS: Albumin 4.4 g/dL (3.5-5.0); Calcium 10.5 mg/dL (8.4-10.2); Potassium 3.7 mmol/L (3.5-5.1); Total Bilirubin 0.4 mg/dL (0.2-1.3); Total Protein 7.7 g/dL (6.3-8.2)
--- NOTE | 2022-03-30 16:24 | XR ---
EXAMINATION TYPE: XR chest 2V DATE OF EXAM: 03/30/2022 COMPARISON: Chest x-ray April 23, 2020 HISTORY: COVID. Congestion. TECHNIQUE: Frontal and lateral views of the chest are obtained. FINDINGS: There is chronic parenchymal change without suspicious new focal air space opacity, pleura l effusion, or pneumothorax seen. The cardiac silhouette size is stable and enlarged. The osseous structures are intact. IMPRESSION: Chronic changes and cardiomegaly without acute pulmonary process. No significant change from prior.
--- NOTE | 2022-03-30 16:38 | CT ---
EXAMINATION TYPE: CT brain wo con for TPA DATE OF EXAM: 03/30/2022 HISTORY: Neuro deficit acute onset. CT DLP: 1244.4 mGycm. Automated Exposure Control for Dose Reduction was Utilized. TECHNIQUE: CT scan of the head is performed without contrast. COMPARISON: Prior CT brain April 23, 2020 FINDINGS: Suboptimal evaluation of the posterior fossa due to artifact from metallic cavities and independent crop consultant wns in the teeth. There is no obvious acute intracranial hemorrhage or midline shift otherwise ident ified. There is mild diffuse ventricular and sulcal prominence redemonstrated. There is moderate low -attenuation in the deep and periventricular white matter redemonstrated. Persistent nearly completel y opacified left frontal sinus with thickened sclerotic wall. Persistent patchy opacification of the anterior ethmoid sinuses bilaterally. Persistent air-fluid level in the left maxillary sinus with mil d mucosal thickening inferiorly. Nasal septum slightly deviated to left of midline. IMPRESSION: No acute intracranial hemorrhage or midline shift. A suboptimal study. There is mild dif fuse cerebral atrophy and moderate to borderline advanced chronic small vessel ischemic change redemo nstrated. No significant change in visualized portions from prior CT.
--- NOTE | 2022-03-30 17:56 | ED ---
Neuro HPI - General Chief Complaint: Neuro Symptoms/Deficit Stated Complaint: Abd pain,Congestion,MARTELL Time Seen by Provider: 03/30/22 15:05 Source: patient, family Mode of arrival: wheelchair Limitations: no limitations - History of Present Illness Is the patient presenting with stroke symptoms?: Yes Initial Comments: 86-year-old female with past medical history of myasthenia gravis, hypertension presents emergency Department with slurred speech. She reports that she has had progressive worsening speech difficulties and swallowing difficulties for the past 2 weeks. She has had trouble eating and drinking. She went and saw Dr. Crespo yesterday in office who recommended that she be evaluated at the hospital as there was concern for stroke. Patient denies previous history of stroke. She denies any weakness in her left or right side. No notable facial droop. No headache or visual changes. She does take her medications for myasthenia gravis which is prescribed by Dr. Bishop. Reports that her disease was first found because she couldn't roller picker her head. Patient found to be in A. fib. Denies history of A. fib. Does not take any blood thinners. She was placed on antibiotics for nasal congestion recently by her PCP. No other alleviating, precipitating or modifying factors - Related Data Home Medications: Home Medications Medication Instructions Recorded Confirmed Lisinopril-Hctz 20-12.5 mg 1 tab PO BID@08,199909/19/13 03/30/22 [Zestoretic 20-12.5] Primidone [Mysoline] 125 mg PO HS@199909/19/13 03/30/22 Fish Oil/Dha/Epa [Fish Oil 1,200 1 cap PO BID@0803/23/14 03/30/22 mg Fish Oil] Fluticasone Nasal [place] [Flonase 2 spray NASAL DAILY@0800 03/28/16 03/30/22 Nasal [place]] Aspirin [Adult Low Dose Aspirin EC] 81 mg PO DAILY@0800 01/10/17 03/30/22 Vit C/E/Zn/Coppr/Lutein/Zeaxan 1 tab PO BID@0800,199901/10/17 03/30/22 [Preservision Areds 2 Softgel] Pyridostigmine [Mestinon] 60 mg PO TID@0800,1200,1600 07/12/20 03/30/22 Amoxic-Pot Clav 875-125Mg 1 tab PO BID 03/30/22 03/30/22 [Augmentin 875-125] Atorvastatin [Lipitor] 10 mg PO HS@199903/30/22 03/30/22 Denosumab [Prolia] 60 mg SQ Q168D 03/30/22 03/30/22 Furosemide [Lasix] 20 mg PO DAILY@0800 03/30/22 03/30/22 Lactose-Reduced Food [Boost Plus] 1 can PO W/BRKFST 03/30/22 03/30/22 Levocetirizine Dihydrochloride 5 mg PO DAILY@0800 03/30/22 03/30/22 [Xyzal] Oyster Shell Tab 500mg 1,500 mg PO DAILY@0800 03/30/22 03/30/22 Propranolol LA [Inderal LA] 60 mg PO DAILY@0800 03/30/22 03/30/22 Sertraline HCl [Zoloft] 50 mg PO DAILY@0800 03/30/22 03/30/22 Topiramate [Topamax] 25 mg PO DAILY@0800 03/30/22 03/30/22 Topiramate [Topamax] 50 mg PO HS@199903/30/22 03/30/22 guaiFENesin [Mucinex] 600 mg PO Q12H 03/30/22 03/30/22 Allergies/Adverse Reactions: Allergies Allergy/AdvReac Type Severity Reaction Status Date / Time sulfamethoxazole Allergy Rash/Hives Verified 03/30/22 16:44 [From Bactrim] trimethoprim [From Bactrim] Allergy Rash/Hives Verified 03/30/22 16:44 Review of Systems ROS Statement: Those systems with pertinent positive or pertinent negative responses have been documented in the HPI. ROS Other: All systems not noted in ROS Statement are negative. General Exam Limitations: no limitations General appearance: alert, in no apparent distress Head exam: Present: atraumatic, normocephalic, normal inspection Eye exam: Present: normal appearance, PERRL, EOMI. Absent: scleral icterus, con junctival injection, periorbital swelling ENT exam: Present: normal exam, mucous membranes moist, other (hoarseness to the patients voice) Neck exam: Present: normal inspection. Absent: tenderness, meningismus, lymphadenopathy Respiratory exam: Present: normal lung sounds bilaterally. Absent: respiratory distress, wheezes, rales, rhonchi, stridor Cardiovascular Exam: Present: normal rhythm, irregular rhythm, normal heart sounds. Absent: systolic murmur, diastolic murmur, rubs, gallop, clicks GI/Abdominal exam: Present: soft, normal bowel sounds. Absent: distended, tenderness, guarding, rebound, rigid Extremities exam: Present: normal inspection, full ROM, normal capillary refill. Absent: tenderness, pedal edema, joint swelling, calf tenderness Neurological exam: Present: alert, oriented X3, CN II-XII intact Skin exam: Present: warm, dry, intact, normal color. Absent: rash Stroke MDM - Lab Data Result diagrams: 04/03/22 07:13 04/03/22 07:13 Lab Results 03/30/22 03/30/22 03/30/22 Range/Units 15:06 15:06 15:06 WBC 6.2 (3.8-10.6) k/uL RBC 3.25 L (3.80-5.40) m/uL Hgb 11.0 L (11.4-16.0) gm/dL Hct 32.6 L (34.0-46.0) % MCV 100.2 H (80.0-100.0) fL MCH 33.9 (25.0-35.0) pg MCHC 33.8 (31.0-37.0) g/dL RDW 13.6 (11.5-15.5) % Plt Count 177 (150-450) k/uL MPV 9.9 Neutrophils % 70 % Lymphocytes % 16 % Monocytes % 5 % Eosinophils % 4 % Basophils % 1 % Neutrophils # 4.4 (1.3-7.7) k/uL Lymphocytes # 1.0 (1.0-4.8) k/uL Monocytes # 0.3 (0-1.0) k/uL Eosinophils # 0.3 (0-0.7) k/uL Basophils # 0.0 (0-0.2) k/uL Macrocytosis Slight PT 11.1 (9.0-12.0) sec INR 1.1 (<1.2) APTT 23.3 (22.0-30.0) sec Sodium 144 (137-145) mmol/L Potassium 3.7 (3.5-5.1) mmol/L Chloride 106 (98-107) mmol/L Carbon Dioxide 35 H (22-30) mmol/L Anion Gap 3 mmol/L BUN 27 H (7-17) mg/dL Creatinine 1.22 H (0.52-1.04) mg/dL Est GFR (CKD-EPI)AfAm 46 (>60 ml/min/1.73 sqM) Est GFR (CKD-EPI)NonAf 40 (>60 ml/min/1.73 sqM) Glucose 116 H (74-99) mg/dL Calcium 10.5 H (8.4-10.2) mg/dL Total Bilirubin 0.4 (0.2-1.3) mg/dL AST 78 H (14-36) U/L ALT 21 (4-34) U/L Alkaline Phosphatase 77 (38-126) U/L Troponin I (0.000-0.034) ng/mL Total Protein 7.7 (6.3-8.2) g/dL Albumin 4.4 (3.5-5.0) g/dL 03/30/22 Range/Units 15:06 WBC (3.8-10.6) k/uL RBC (3.80-5.40) m/uL Hgb (11.4-16.0) gm/dL Hct (34.0-46.0) % MCV (80.0-100.0) fL MCH (25.0-35.0) pg MCHC (31.0-37.0) g/dL RDW (11.5-15.5) % Plt Count (150-450) k/uL MPV Neutrophils % % Lymphocytes % % Monocytes % % Eosinophils % % Basophils % % Neutrophils # (1.3-7.7) k/uL Lymphocytes # (1.0-4.8) k/uL Monocytes # (0-1.0) k/uL Eosinophils # (0-0.7) k/uL Basophils # (0-0.2) k/uL Macrocytosis PT (9.0-12.0) sec INR (<1.2) APTT (22.0-30.0) sec Sodium (137-145) mmol/L Potassium (3.5-5.1) mmol/L Chloride (98-107) mmol/L Carbon Dioxide (22-30) mmol/L Anion Gap mmol/L BUN (7-17) mg/dL Creatinine (0.52-1.04) mg/dL Est GFR (CKD-EPI)AfAm (>60 ml/min/1.73 sqM) Est GFR (CKD-EPI)NonAf (>60 ml/min/1.73 sqM) Glucose (74-99) mg/dL Calcium (8.4-10.2) mg/dL Total Bilirubin (0.2-1.3) mg/dL AST (14-36) U/L ALT (4-34) U/L Alkaline Phosphatase (38-126) U/L Troponin I 0.056 H* (0.000-0.034) ng/mL Total Protein (6.3-8.2) g/dL Albumin (3.5-5.0) g/dL - Medical Decision Making Was pt. sent in by a medical professional or institution? Dr. Garrison office Did you speak to anyone other than the patient for history? Daughter Did you review nursing and triage notes? yes and I agree Were old charts reviewed? No Differential Diagnosis? MG exacerbation, stroke, tia, retropharyngeal abscess, angioedema, allergic reaction EKG interpreted by me (3pts min.)? yes X-rays interpreted by me (1pt min.)? yes CT interpreted by me (1pt min.)? yes U/S interpreted by me (1pt. min.)? no What testing was considered but not performed? (CT, X-rays, U/S, labs)? Why? none What meds were considered but not given? Why? none Did you discuss the management of the patient with other professionals? admitting physician Did you reconcile home meds? yes Was smoking cessation discussed for >3mins.? no Was critical care preformed (if so, how long)? no Were there social determinants of health that impacted care today? How? (Homelessness, low income, unemployed, alcoholism, drug addiction, transportation, low edu. Level, literacy, decrease access to med. care, senior care, rehab)? none Was there de-escalation of care discussed even if they declined? (Discuss DNR or withdrawal of care, Hospice)? not in the ED What co-morbidities impacted this encounter? (DM, HTN, Smoking, COPD, CAD, Cancer, CVA, Hep., AIDS, mental health diagnosis, sleep apnea, morbid obesity)? MG, htn Was patient admitted / discharged? @Upon arrival patient was placed into trauma 1. History and physical exam was performed. IV access was established. laboratory studies were conducted. Troponin 0.056. Creatinine 1.2. CT of the brain was performed which demonstrates chronic small vessel ischemia. Chest x-ray demonstrates no acute process. I discussed results with the patient. Recommend admission for n eurology consultation to discuss acute CVA versus myasthenia gravis exacerbation. I did order the patient's home medications. Patient was agreeable to admission. Called and spoke with DR. Quiros from [facility] who agreed to admit the patient Undiagnosed new problem with uncertain prognosis? yes Drug Therapy requiring intensive monitoring for toxicity (Heparin, Nitro, Insulin, Cardizem)? no Were any procedures done? no Diagnosis/symptom? acute dysarthria, possible MG exacerbation Acute, or Chronic, or Acute on Chronic? acute on chronic Uncomplicated (without systemic symptoms) or Complicated (systemic symptoms)? complicated Side effects of treatment? none Exacerbation, Progression, or Severe Exacerbation] severe exacerbation Poses a threat to life or bodily function? yes EKG demonstrates A. fib with a rate of 60. QRS 120. QTC of 446. No acute ST segment elevations or depressions Past Medical History Past Medical History: Hypertension Additional Past Medical History / Comment(s): tremors History of Any Multi-Drug Resistant Organisms: None Reported Past Surgical History: Cholecystectomy, Hysterectomy Additional Past Surgical History / Comment(s): bital foot surgery and nasal surgery for deviated septum, cataracts, glaucoma stents, mysthanis gravis Past Anesthesia/Blood Transfusion Reactions: No Reported Reaction Past Psychological History: No Psychological Hx Reported Smoking Status: Never smoker Past Alcohol Use History: None Reported Past Drug Use History: None Reported - Past Family History Father Family Medical History: Myocardial Infarction (PA) Mother Additional Family Medical History / Comment(s): parkinsons Course Vital Signs 03/30/22 03/30/22 03/31/22 14:43 21:00 00:00 Temperature 97 F L Pulse Rate 64 56 L 67 Respiratory 16 16 16 Rate Blood Pressure 120/77 150/92 182/92 O2 Sat by Pulse 98 96 93 L Oximetry 03/31/22 03/31/22 03/31/22 05:45 08:13 10:56 Temperature 97.8 F Pulse Rate 70 105 H Respiratory 16 Rate Blood Pressure 155/77 181/95 166/68 O2 Sat by Pulse 95 96 Oximetry 03/31/22 03/31/22 16:21 16:42 Temperature 97.5 F L Pulse Rate 90 Respiratory 18 Rate Blood Pressure 165/101 O2 Sat by Pulse 98 Oximetry Disposition Clinical Impression: Myasthenia gravis, Cerebrovascular accident (CVA), Dysphagia, Dysarthria Disposition: ADMITTED IP TO THIS HOSP Condition: Stable Is patient prescribed a controlled substance at d/c from ED?: No Time of Disposition: 17:57 Decision to Admit Reason: Admit from EC Decision Date: 03/30/22 Decision Time: 17:57
[2022-03-30] MEDS ORDERED: NALOXONE 0.4 MG/ML 1 ML VIAL IV PRN (17:57)
[2022-03-30] MEDS ORDERED: PYRIDOSTIGMINE 60 MG TAB PO STA (18:02)
[2022-03-30 19:04] LABS: Appearance,Urine Clear (Clear); Bilirubin,Urine Negative (Negative); Blood,Urine Negative (Negative); Color,Urine Light Yellow; Glucose,Urine (UA) Negative (Negative); Hyaline Casts,Urine 6 /lpf (0-2); Ketones,Urine Trace (Negative); Leukocyte Esterase,Urine Trace (Negative); Mucus,Urine Rare /hpf; Nitrite,Urine Negative (Negative); PH, Urine 6.5 (5.0-8.0); Protein,Urine Trace (Negative); RBC,Urine 1 /hpf (0-5); Specific Gravity,Urine 1.013 (1.001-1.035); Squamous Epithelial Cell,Urine 1 /hpf (0-4); Urobilinogen,Urine <2.0 mg/dL (<2.0); WBC,Urine 5 /hpf (0-5)
[2022-03-30] MEDS: TOPIRAMATE 25 MG TAB PO SCH (20:52)
[2022-03-30] MEDS: LISINOPRIL-HCTZ 20-12.5 MG 1 EACH TAB PO SCH (20:52)
[2022-03-30] MEDS: ATORVASTATIN 10 MG TAB PO SCH (20:53)
[2022-03-30] MEDS: PRIMIDONE 50 MG TAB PO SCH (20:53)
[2022-03-30] MEDS: SODIUM CHLORIDE 0.9% 1,000 ML IV SCH (20:59)
[2022-03-31 04:18] LABS: Calcium 9.6 mg/dL (8.4-10.2); Potassium 2.9 mmol/L (3.5-5.1)
[2022-03-31 06:40] LABS: Basophils % (A) 0 %; Eosinophils # (A) 0.3 k/uL (0-0.7); Eosinophils % (A) 6 %; HCT 29.9 % (34.0-46.0); HGB 10.3 gm/dL (11.4-16.0); Lymphocytes % (A) 23 %; MCH 35.3 pg (25.0-35.0); MCHC 34.4 g/dL (31.0-37.0); MCV 102.7 fL (80.0-100.0); Macrocytosis Slight; Mean Platelet Volume 10.4; Monocytes # (A) 0.3 k/uL (0-1.0); Monocytes % (A) 6 %; Neutrophils # (A) 2.6 k/uL (1.3-7.7); Neutrophils % (A) 60 %; Platelet Count 152 k/uL (150-450); RBC 2.91 m/uL (3.80-5.40); RDW 13.2 % (11.5-15.5); WBC 4.2 k/uL (3.8-10.6)
[2022-03-31] MEDS: SODIUM CHLORIDE 0.9% 1,000 ML IV SCH ×2 (06:42→20:09)
[2022-03-31] MEDS: ASPIRIN 81 MG PO SCH (08:15)
[2022-03-31] MEDS: SERTRALINE 50 MG TAB PO SCH (08:15)
[2022-03-31] MEDS: PYRIDOSTIGMINE 60 MG TAB PO SCH ×4 (08:16→20:09)
[2022-03-31] MEDS: LISINOPRIL-HCTZ 20-12.5 MG 1 EACH TAB PO SCH ×2 (08:16→20:13)
[2022-03-31] MEDS: PROPRANOLOL LA 60 MG CAP.SA.24H PO SCH (08:16)
[2022-03-31] MEDS: TOPIRAMATE 25 MG TAB PO SCH ×2 (08:19→20:13)
[2022-03-31] MEDS: FUROSEMIDE 20 MG TAB PO SCH (08:20)
--- NOTE | 2022-03-31 11:25 | P.CNNES ---
History of Present Illness Consult date: 03/31/22 Requesting physician: Bethany Gomez Reason for Consult: acute dysarthria and dysphagia, possible cva vs MG exacerbation History of Present Illness: This is a 86-year-old woman with history of myasthenia gravis, essential tremor, very hard of hearing, hypertension who presented that because of slurred speech and swallowing difficulty. She is accompanied by her . It seems the patient has been having the worsening speech difficulty in swallowing difficulty for the past 2-3 weeks. She's having issues with the liquids and solids. She denies of any focal weakness facial droop or visual disturbance. Denies any history of the atrial fibrillation. She is on Mestinon 60 mg 1 tablet 3 times a day. Patient is follows-up with Dr. Bishop (neurologist) for her Myastehnia gravis. Initially she was notified that she had myasthenia gravis because she had difficulty picking up her head and according to was confirmed with lab testing. She was a notified by her primary care physician to be valid in the hospital for concern for stroke. Some of the workup during his hospital visit consisted of: Troponin slightly elevated. Symptoms 10.5 which is slightly elevated otherwise glucose sodium is within normal limits AST slightly elevated of 78. He gives the head is reported as no acute intracranial hemorrhage or midline shift. Suboptimal study. There is a mild diffuse cerebral atrophy and moderate the borderline advanced chronic small vessel ischemic changes redemonstrated. No significant change visualized portions from a CT. EKG is reported as age are fibrillation. Left anterior fascicular block. Anterolateral myocardial infarction. Acute PA. Review of Systems Review of system: The 12 point system was reviewed and apparent positive and negative per HPI. Past Medical History Past Medical History: Hypertension Additional Past Medical History / Comment(s): tremors History of Any Multi-Drug Resistant Organisms: None Reported Past Surgical History: Cholecystectomy, Hysterectomy Additional Past Surgical History / Comment(s): bital foot surgery and nasal surgery for deviated septum, cataracts, glaucoma stents, mysthanis gravis Past Anesthesia/Blood Transfusion Reactions: No Reported Reaction Past Psychological History: No Psychological Hx Reported Smoking Status: Never smoker Past Alcohol Use History: None Reported Past Drug Use History: None Reported - Past Family History Father Family Medical History: Myocardial Infarction (PA) Mother Additional Family Medical History / Comment(s): parkinsons Medications and Allergies Home Medications Medication Instructions Recorded Confirmed Type Lisinopril-Hctz 20-12.5 mg 1 tab PO BID@08,199909/19/13 03/30/22 History [Zestoretic 20-12.5] Primidone [Mysoline] 125 mg PO HS@199909/19/13 03/30/22 History Fish Oil/Dha/Epa [Fish Oil 1,200 1 cap PO BID@08,199903/23/14 03/30/22 History mg Fish Oil] Fluticasone Nasal [place] [Flonase 2 spray NASAL DAILY@79903/28/16 03/30/22 History Nasal [place]] Aspirin [Adult Low Dose Aspirin EC] 81 mg PO DAILY@0801/10/17 03/30/22 History Vit C/E/Zn/Coppr/Lutein/Zeaxan 1 tab PO BID@08,199901/10/17 03/30/22 History [Preservision Areds 2 Softgel] Pyridostigmine [Mestinon] 60 mg PO TID@0800,1200,1600 07/12/20 03/30/22 History Amoxic-Pot Clav 875-125Mg 1 tab PO BID 03/30/22 03/30/22 History [Augmentin 875-125] Atorvastatin [Lipitor] 10 mg PO HS@199903/30/22 03/30/22 History Denosumab [Prolia] 60 mg SQ Q168D 03/30/22 03/30/22 History Furosemide [Lasix] 20 mg PO DAILY@0803/30/22 03/30/22 History Lactose-Reduced Food [Boost Plus] 1 can PO W/BRKFST 03/30/22 03/30/22 History Levocetirizine Dihydrochloride 5 mg PO DAILY@79903/30/22 03/30/22 History [Xyzal] Oyster Shell Tab 500mg 1,500 mg PO DAILY@79903/30/22 03/30/22 History Propranolol LA [Inderal LA] 60 mg PO DAILY@0800 03/30/22 03/30/22 History Sertraline HCl [Zoloft] 50 mg PO DAILY@0800 03/30/22 03/30/22 History Topiramate [Topamax] 25 mg PO DAILY@0800 03/30/22 03/30/22 History Topiramate [Topamax] 50 mg PO HS@199903/30/22 03/30/22 History guaiFENesin [Mucinex] 600 mg PO Q12H 03/30/22 03/30/22 History Allergies Allergy/AdvReac Type Severity Reaction Status Date / Time sulfamethoxazole Allergy Rash/Hives Verified 03/30/22 16:44 [From Bactrim] trimethoprim [From Bactrim] Allergy Rash/Hives Verified 03/30/22 16:44 Physical Examination - Vital Signs Vital Signs: Vital Signs Temp Pulse Resp BP Pulse Ox 03/31/22 08:13 97.8 F 105 H 181/95 96 03/31/22 05:45 70 16 155/77 95 03/31/22 00:00 67 16 182/92 93 L 03/30/22 21:00 56 L 16 150/92 96 03/30/22 14:43 97 F L 64 16 120/77 98 GENERAL: The patient is lying in bed and is not in acute distress. CHEST: The heart rate is regular rate rhythm. No murmurs to auscultation. LUNG: Clear to auscultation bilaterally no wheezing noted throughout. Not labored breathing. ABDOMEN/GI: Bowel sounds present in all 4 quadrants. No tenderness to palpation throughout. NEUROLOGICAL: Higher mental function: The patient is awake, alert, oriented to self, place and time. Patient is following commands. No aphasia and no neglect. Cranial nerves: The pupils are round, equal and reactive to light and accommodation. Visual [place] are full to confrontation throughout. Extraocular movement is intact no nystagmus is noted. Head extension is 5/5 while felxion is 3-4-. Facial sensation is normal to touch throughout. The facial strength is normal throughout. Hearing is severely decreased bilaterally to hand rub (does not have hearing aids with her). Tongue is weak moving out but is able to move side to side but delayed in performing. +ve nasal tone. Shoulder shrug is normal bilaterally. Motor: The strength is 5 over 5 throughout. Normal tone and bulk. Cerebellum: Normal finger to nose bilaterally. Patient has tremor with action but when resting predominately. Sensation: Sensation is normal to touch throughout. Reflexes (right/left): Left brachioradialis and biceps are 2-3+. Otherwise2+ throughout. Plantars are mute bilaterally. Results - Laboratory Findings CBC and BMP: 03/31/22 03:41 03/31/22 03:41 Abnormal Lab Findings: Abnormal Labs 03/30/22 03/30/22 03/30/22 15:06 15:06 15:06 RBC 3.25 L Hgb 11.0 L Hct 32.6 L MCV 100.2 H MCH Potassium Carbon Dioxide 35 H BUN 27 H Creatinine 1.22 H Glucose 116 H Calcium 10.5 H AST 78 H Troponin I 0.056 H* Urine Protein Urine Ketones Ur Leukocyte Esterase Hyaline Casts Urine Mucus 03/30/22 03/30/22 03/31/22 18:59 23:48 03:41 RBC 2.91 L Hgb 10.3 L Hct 29.9 L MCV 102.7 H MCH 35.3 H Potassium Carbon Dioxide BUN Creatinine Glucose Calcium AST Troponin I 0.057 H* Urine Protein Trace H Urine Ketones Trace H Ur Leukocyte Esterase Trace H Hyaline Casts 6 H Urine Mucus Rare H 03/31/22 03/31/22 03:41 03:41 RBC Hgb Hct MCV MCH Potassium 2.9 L Carbon Dioxide 33 H BUN 23 H Creatinine 1.07 H Glucose Calcium AST Troponin I 0.050 H* Urine Protein Urine Ketones Ur Leukocyte Esterase Hyaline Casts Urine Mucus Assessment and Plan Assessment: Acute dysarthria and dysphagia for the past 2-3 weeks: Likely Myasthenia Gravis exacerbation. Rule out subacute ischemic stroke especially since has new onset atrial fibrillation Hypercalcemia New onset atrial fibrillation Slightly elevated troponin History of myasthenia gravis Essential tremor History of Hypertension and hypertension is elevated in our facility. Very hard of hearing Plan: I started the patient on IVIG for 5 days. Ordered NIF and FVC to be evaluated by Respiratory therapist. If patient has short of breath, labored breathing breathing or drastic worsening of neurological condition then recommend to be transferred to ICU. I ordered MRI the brain without to rule out any acute or subacute ischemia especially with a new onset atrial fibrillation. I ordered TSH, ionized calcium. If they are abnormal we'll defer the management to primary team Increased Mestinon 60 mg 1 tablet 3 times a day to qid. Early on aspirin 81 mg daily. Patient is on Lipitor 10 mg daily at bedtime Q4 hour neuro checks On cardiac monitoring I consulted PT and OT. Speech therapy is consulted For new onset atrial fibrillation and elevated troponin will defer the management to primary team. Consider cardiology consultation. We'll defer the rest of the medical management to primary team. Upon discharge, she needs to follow-up with her neurologist (Dr. Bishop) within 1-2 weeks. The plan is discussed with patient and her who is at bedside. Thank you for the consultation. Time with Patient: Greater than 30
[2022-03-31] MEDS ORDERED: IMMUNE GLOBULIN (GAMMAGARD) 20 GM in EMPTY BAG 1 BAG IV ONE (12:00)
--- NOTE | 2022-03-31 13:40 | MR ---
EXAMINATION TYPE: MR brain wo con DATE OF EXAM: 03/31/2022 1:30 PM COMPARISON: CT brain 03/30/2022, 04/23/2020. CLINICAL INDICATION:Female, 86 years old with history of dysphagia. TECHNIQUE: Multi planar, multi sequence imaging of the brain was performed. No gadolinium was given. FINDINGS: The barrett-white junctions appear unremarkable. Mild prominence of the cisterns and ventricular system is related to cerebral atrophy. Confluent areas of T2/FLAIR hyperintensity within the periventricula r and subcortical white matter. Midline structures show no abnormality. Diffusion-weighted imaging sh ows no evidence of restricted diffusion. The susceptibility weighted images a few scattered foci of s usceptibility artifact within the left cerebellum, right temporal lobe, bilateral parietal lobes and left frontal lobe. The bone marrow signal is within normal limits. The ocular lenses are surgically absent. Complete opa cification of the left frontal sinus with mild mucosal thickening of the anterior ethmoid sinuses and left maxillary sinus. IMPRESSION: 1. No evidence of acute/subacute infarct. 2. Nonspecific white matter changes, likely secondary to small vessel ischemic disease. 3. Scattered foci of susceptibility artifact likely related to prior microhemorrhage. 4. Changes of chronic sinusitis.
--- NOTE | 2022-03-31 19:01 | P.HPIM ---
History of Present Illness H&P Date: 03/31/22 Chief Complaint: Difficulty breathing/congestion/weakness 86-year-old female with past medical history of myasthenia gravis, hypertension presents emergency Department with slurred speech. She reports that she has had progressive worsening speech difficulties and swallowing difficulties for the past 2 weeks. She has had trouble eating and drinking. She went and saw Dr. Crespo yesterday in office who recommended that she be evaluated at the hospital as there was concern for stroke. Patient denies previous history of stroke. She denies any weakness in her left or right side. No notable facial droop. No headache or visual changes. She does take her medications for myasthenia gravis which is prescribed by Dr. Bishop. 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 Patient found to be in A. fib. Denies history of A. fib. Does not take any blood thinners. No other alleviating, precipitating or modifying factors Some of the workup during his hospital visit consisted of: Troponin slightly elevated. Symptoms 10.5 which is slightly elevated otherwise glucose sodium is within normal limits AST slightly elevated of 78. He gives the head is reported as no acute intracranial hemorrhage or midline shift. Suboptimal study. There is a mild diffuse cerebral atrophy and moderate the borderline advanced chronic small vessel ischemic changes redemonstrated. No significant change visualized portions from a CT. EKG is reported as age are fibrillation. Left anterior fascicular block. Anterolateral myocardial infarction. Acute [place]. Review of Systems REVIEW OF SYSTEMS: CONSTITUTIONAL: No fever, no malaise, no fatigue. HEENT: No recent visual problems or hearing problems. Denied any sore throat. CARDIOVASCULAR: No chest pain, orthopnea, PND, no palpitations, no syncope. PULMONARY: No shortness of breath, no cough, no hemoptysis. GASTROINTESTINAL: No diarrhea, no nausea, no vomiting, no abdominal pain. NEUROLOGICAL: No headaches, no weakness, no numbness. HEMATOLOGICAL: Denies any bleeding or petechiae. GENITOURINARY: Denies any burning micturition, frequency, or urgency. MUSCULOSKELETAL/RHEUMATOLOGICAL: Denies any joint pain, swelling, or any muscle pain. ENDOCRINE: Denies any polyuria or polydipsia. The rest of the 14-point review of systems is negative. Past Medical History Past Medical History: Hypertension Additional Past Medical History / Comment(s): tremors History of Any Multi-Drug Resistant Organisms: None Reported Past Surgical History: Cholecystectomy, Hysterectomy Additional Past Surgical History / Comment(s): bital foot surgery and nasal surgery for deviated septum, cataracts, glaucoma stents, mysthanis gravis Past Anesthesia/Blood Transfusion Reactions: No Reported Reaction Past Psychological History: No Psychological Hx Reported Smoking Status: Never smoker Past Alcohol Use History: None Reported Past Drug Use History: None Reported - Past Family History Father Family Medical History: Myocardial Infarction ([place]) Mother Additional Family Medical History / Comment(s): parkinsons Medications and Allergies Home Medications Medication Instructions Recorded Confirmed Type Lisinopril-Hctz 20-12.5 mg 1 tab PO BID@0800,199909/19/13 03/30/22 History [Zestoretic 20-12.5] Primidone [Mysoline] 125 mg PO HS@199909/19/13 03/30/22 History Fish Oil/Dha/Epa [Fish Oil 1,200 1 cap PO BID@0800,199903/23/14 03/30/22 History mg Fish Oil] Fluticasone Nasal [place] [Flonase 2 spray NASAL DAILY@0800 03/28/16 03/30/22 History Nasal [place]] Aspirin [Adult Low Dose Aspirin EC] 81 mg PO DAILY@0800 01/10/17 03/30/22 History Vit C/E/Zn/Coppr/Lutein/Zeaxan 1 tab PO BID@0800,199901/10/17 03/30/22 History [Preservision Areds 2 Softgel] Pyridostigmine [Mestinon] 60 mg PO TID@0800,1200,1600 07/12/20 03/30/22 History Amoxic-Pot Clav 875-125Mg 1 tab PO BID 03/30/22 03/30/22 History [Augmentin 875-125] Atorvastatin [Lipitor] 10 mg PO HS@199903/30/22 03/30/22 History Denosumab [Prolia] 60 mg SQ Q168D 03/30/22 03/30/22 History Furosemide [Lasix] 20 mg PO DAILY@0800 03/30/22 03/30/22 History Lactose-Reduced Food [Boost Plus] 1 can PO W/BRKFST 03/30/22 03/30/22 History Levocetirizine Dihydrochloride 5 mg PO DAILY@79903/30/22 03/30/22 History [Xyzal] Oyster Shell Tab 500mg 1,500 mg PO DAILY@79903/30/22 03/30/22 History Propranolol LA [Inderal LA] 60 mg PO DAILY@79903/30/22 03/30/22 History Sertraline HCl [Zoloft] 50 mg PO DAILY@79903/30/22 03/30/22 History Topiramate [Topamax] 25 mg PO DAILY@79903/30/22 03/30/22 History Topiramate [Topamax] 50 mg PO HS@199903/30/22 03/30/22 History guaiFENesin [Mucinex] 600 mg PO Q12H 03/30/22 03/30/22 History Allergies Allergy/AdvReac Type Severity Reaction Status Date / Time sulfamethoxazole Allergy Rash/Hives Verified 03/30/22 16:44 [From Bactrim] trimethoprim [From Bactrim] Allergy Rash/Hives Verified 03/30/22 16:44 Physical Exam Vitals: Vital Signs Temp Pulse Resp BP Pulse Ox 03/31/22 10:56 166/68 03/31/22 08:13 97.8 F 105 H 181/95 96 03/31/22 05:45 70 16 155/77 95 03/31/22 00:00 67 16 182/92 93 L 03/30/22 21:00 56 L 16 150/92 96 03/30/22 14:43 97 F L 64 16 120/77 98 PHYSICAL EXAMINATION: GENERAL: The patient is alert and oriented x3, not in any acute distress. Well developed, well nourished. HEENT: Pupils are round and equally reacting to light. EOMI. No scleral icterus. No conjunctival pallor. Normocephalic, atraumatic. No pharyngeal erythema. No thyromegaly. CARDIOVASCULAR: S1 and S2 present. No murmurs, rubs, or gallops. PULMONARY: Chest is clear to auscultation, no wheezing or crackles. ABDOMEN: Soft, nontender, nondistended, normoactive bowel sounds. No palpable organomegaly. MUSCULOSKELETAL: No joint swelling or deformity. EXTREMITIES: No cyanosis, clubbing, or pedal edema. NEUROLOGICAL: Gross neurological examination did not reveal any focal deficits. SKIN: No rashes. Results CBC & Chem 7: 03/31/22 03:41 03/31/22 03:41 Labs: Abnormal Lab Results - Last 24 Hours (Table) 03/30/22 03/30/22 03/30/22 Range/Units 15:06 15:06 15:06 RBC 3.25 L (3.80-5.40) m/uL Hgb 11.0 L (11.4-16.0) gm/dL Hct 32.6 L (34.0-46.0) % MCV 100.2 H (80.0-100.0) fL MCH (25.0-35.0) pg Potassium (3.5-5.1) mmol/L Carbon Dioxide 35 H (22-30) mmol/L BUN 27 H (7-17) mg/dL Creatinine 1.22 H (0.52-1.04) mg/dL Glucose 116 H (74-99) mg/dL Calcium 10.5 H (8.4-10.2) mg/dL AST 78 H (14-36) U/L Troponin I 0.056 H* (0.000-0.034) ng/mL Urine Protein (Negative) Urine Ketones (Negative) Ur Leukocyte Esterase (Negative) Hyaline Casts (0-2) /lpf Urine Mucus (None) /hpf 03/30/22 03/30/22 03/31/22 Range/Units 18:59 23:48 03:41 RBC 2.91 L (3.80-5.40) m/uL Hgb 10.3 L (11.4-16.0) gm/dL Hct 29.9 L (34.0-46.0) % MCV 102.7 H (80.0-100.0) fL MCH 35.3 H (25.0-35.0) pg Potassium (3.5-5.1) mmol/L Carbon Dioxide (22-30) mmol/L BUN (7-17) mg/dL Creatinine (0.52-1.04) mg/dL Glucose (74-99) mg/dL Calcium (8.4-10.2) mg/dL AST (14-36) U/L Troponin I 0.057 H* (0.000-0.034) ng/mL Urine Protein Trace H (Negative) Urine Ketones Trace H (Negative) Ur Leukocyte Esterase Trace H (Negative) Hyaline Casts 6 H (0-2) /lpf Urine Mucus Rare H (None) /hpf 03/31/22 03/31/22 Range/Units 03:41 03:41 RBC (3.80-5.40) m/uL Hgb (11.4-16.0) gm/dL Hct (34.0-46.0) % MCV (80.0-100.0) fL MCH (25.0-35.0) pg Potassium 2.9 L (3.5-5.1) mmol/L Carbon Dioxide 33 H (22-30) mmol/L BUN 23 H (7-17) mg/dL Creatinine 1.07 H (0.52-1.04) mg/dL Glucose (74-99) mg/dL Calcium (8.4-10.2) mg/dL AST (14-36) U/L Troponin I 0.050 H* (0.000-0.034) ng/mL Urine Protein (Negative) Urine Ketones (Negative) Ur Leukocyte Esterase (Negative) Hyaline Casts (0-2) /lpf Urine Mucus (None) /hpf Assessment and Plan Assessment: 1. Acute onset dysarthria/dysphagia; likely myasthenia gravis exacerbation - Patient has been evaluated by neurology and has been placed on IVIG for 5 days; further workup is in progress - Neurology recommending transfer to ICU if patient develops labored breathing or drastic worsening of neurological condition - Increase Mestinon 60 mg 3 times a day up to 60 mg 4 times a day 2. Rule out acute versus subacute ischemic stroke - MRI of the brain is ordered to rule out acute versus subacute ischemic stroke given new onset atrial fibrillation; TSH, vitamin B12 and folic acid is ordered - Patient is recommended to continue aspirin and Lipitor - Monitor neuro checks per stroke protocol 3. New onset atrial fibrillation; we will monitor EKG; we will follow with IV heparin given possibility of acute versus subacute CVA; patient remains rate controlled; consult cardiology 4. Elevated troponin; troponin has been trended and remains flat; no signs of ischemia on EKG; recommended 2-D echo 5. Hypercalcemia; likely related to dehydration due to poor oral intake due to dysphagia; we will start patient on slow IV fluid hydration; monitor ionized calcium level closely 6. Essential tremors; Inderal LA 60 mg daily 7. Hypertension; Zestoretic 2012 0.5 mg twice a day; Lasix 20 mg daily 8. Hyperlipidemia; Lipitor 10 mg by mouth daily at bedtime. 9. Seasonal ALLERGIES; patient uses Flonase nasal spray and Xyzal 5 mg daily
[2022-03-31] MEDS: PRIMIDONE 50 MG TAB PO SCH (20:13)
[2022-03-31] MEDS: ATORVASTATIN 10 MG TAB PO SCH (20:13)
[2022-03-31] MEDS ORDERED: Potassium Replacement Protocol 1 EACH MISC MISCELLANE PRN (21:10)
[2022-03-31] MEDS: POTASSIUM CHLORIDE 10 MEQ in WATER FOR INJECTION 1 100ML.BAG IVPB SCH ×2 (22:17→23:21)
[2022-04-01] MEDS: POTASSIUM CHLORIDE 10 MEQ in WATER FOR INJECTION 1 100ML.BAG IVPB SCH ×4 (00:26→04:00)
[2022-04-01] MEDS ORDERED: HEPARIN SODIUM 1,000 UN/ML (10ML VL) IV ONE (10:35)
[2022-04-01] MEDS: LISINOPRIL-HCTZ 20-12.5 MG 1 EACH TAB PO SCH ×2 (10:55→21:20)
[2022-04-01] MEDS: PROPRANOLOL LA 60 MG CAP.SA.24H PO SCH (10:55)
[2022-04-01] MEDS: ASPIRIN 81 MG PO SCH (10:55)
[2022-04-01] MEDS: SERTRALINE 50 MG TAB PO SCH (10:55)
[2022-04-01] MEDS: TOPIRAMATE 25 MG TAB PO SCH ×2 (10:55→21:20)
[2022-04-01 11:25] LABS: Basophils % (A) 0 %; Eosinophils % (A) 0 %; HGB 10.2 gm/dL (11.4-16.0); Lymphocytes # (A) 0.9 k/uL (1.0-4.8); Lymphocytes % (A) 13 %; MCH 35.1 pg (25.0-35.0); MCHC 34.1 g/dL (31.0-37.0); MCV 102.8 fL (80.0-100.0); Macrocytosis Slight; Mean Platelet Volume 9.8; Monocytes # (A) 0.2 k/uL (0-1.0); Monocytes % (A) 3 %; Neutrophils # (A) 5.8 k/uL (1.3-7.7); Neutrophils % (A) 81 %; Platelet Count 142 k/uL (150-450); RBC 2.92 m/uL (3.80-5.40); RDW 13.4 % (11.5-15.5); WBC 7.1 k/uL (3.8-10.6)
[2022-04-01 11:44] LABS: Calcium 9.3 mg/dL (8.4-10.2); Potassium 3.9 mmol/L (3.5-5.1)
[2022-04-01] MEDS ORDERED: IMMUNE GLOBULIN (GAMMAGARD) 20 GM in EMPTY BAG 1 BAG IV ONE (12:00)
[2022-04-01] MEDS: PYRIDOSTIGMINE 60 MG TAB PO SCH ×4 (12:33→19:02)
[2022-04-01] MEDS: HEPARIN SOD,PORK IN 0.45% NACL 25,000 UNIT in 0.45% NACL 1 250ML.BAG IV SCH (12:44)
--- NOTE | 2022-04-01 13:46 | P.PN ---
Subjective Progress Note Date: 04/01/22 The patient is seen and was sitting in a recliner chair and felt she seems better today compared to yesterday. Objective - Vital Signs Vital signs: Vital Signs Temp 97.5 F L 04/01/22 12:00 Pulse 67 04/01/22 12:00 Resp 17 04/01/22 12:00 BP 182/94 04/01/22 12:00 Pulse Ox 97 04/01/22 12:00 FiO2 Intake & Output 03/31/22 04/01/22 04/01/22 18:59 06:59 18:59 Intake Total 1050 Balance 1050 Weight 43.545 kg Intake: Intake, IV Titration 1050 Amount Potassium Chloride 10 meq 600 In Water For Injection 1 100ml.bag @ 100 mls/hr IVPB Q1HR [facility] Rx#: [id number] Sodium Chloride 0.9% 1, 450 000 ml @ 75 mls/hr IV . [id number] [facility] Rx#:[id number] Other: Voiding Method Toilet # Voids 5 - Exam GENERAL: The patient is sitting in a recliner chair and is not in acute distress. NEUROLOGICAL: Higher mental function: The patient is awake, alert, oriented to self, place and time. Patient is following commands. No aphasia and no neglect. Cranial nerves: The pupils are round, equal and reactive to light and accommodation. Visual [place] are full to confrontation throughout. Extraocular movement is intact no nystagmus is noted. Head extension is 5/5 while felxion is 3-4-. Facial sensation is normal to touch throughout. The facial strength is normal throughout. Hearing is severely decreased bilaterally to hand rub (does not have hearing aids with her). Tongue is moving any difficulty. +ve nasal tone but I felt is doing better today. Shoulder shrug is normal bilaterally. Motor: The strength is 5 over 5 throughout. Normal tone and bulk. Cerebellum: Normal finger to nose bilaterally. Patient has tremor with action but when resting predominately. Sensation: Sensation is normal to touch throughout. Reflexes (right/left): Left brachioradialis and biceps are 2-3+. Otherwise2+ throughout. Plantars are mute bilaterally. Some of the workup during his hospital visit consisted of: Troponin slightly elevated. Symptoms 10.5 which is slightly elevated otherwise glucose sodium is within normal limits AST slightly elevated of 78. CT head is reported as no acute intracranial hemorrhage or midline shift. Suboptimal study. There is a mild diffuse cerebral atrophy and moderate the borderline advanced chronic small vessel ischemic changes redemonstrated. No significant change visualized portions from a CT. TSH is 2.480 Ionized calcium is 5.0 MRI brain is reported as no evidence of acute/subacute infarct. Nonspecific w jamil matter changes, likely secured to small vessel ischemic disease. Scattered foci of susceptibility artifact likely related to prior microhemorrhages. Changes of chronic sinusitis. I personally reviewed the MRI and there is no acute or subacute ischemia. - Labs CBC & Chem 7: 04/01/22 10:58 04/01/22 10:58 Labs: Abnormal Lab Results - Last 24 Hours (Table) 04/01/22 04/01/22 Range/Units 10:58 10:58 RBC 2.92 L (3.80-5.40) m/uL Hgb 10.2 L (11.4-16.0) gm/dL Hct 30.0 L (34.0-46.0) % MCV 102.8 H (80.0-100.0) fL MCH 35.1 H (25.0-35.0) pg Plt Count 142 L (150-450) k/uL Lymphocytes # 0.9 L (1.0-4.8) k/uL Chloride 109 H (98-107) mmol/L Carbon Dioxide 21 L (22-30) mmol/L BUN 29 H (7-17) mg/dL Creatinine 1.07 H (0.52-1.04) mg/dL Assessment and Plan Assessment: Acute dysarthria and dysphagia for the past 2-3 weeks: Due to Myasthenia Gravis exacerbation. No acute or subacute ischemic stroke Hypercalcemia New onset atrial fibrillation Slightly elevated troponin History of myasthenia gravis Essential tremor History of Hypertension and hypertension is elevated in our facility. Very hard of hearing Plan: I started the patient on IVIG for 5 days (started on 03/31/2022. Today is day 2). Ordered NIF and FVC to be evaluated by Respiratory therapist and notified nurse to contact respiratory eam. If patient has short of breath, labored breathing breathing or drastic worsening of neurological condition then recommend to be transferred to ICU. Increased Mestinon 60 mg 1 tablet 3 times a day to qid but later was told patient could not tolerate 4th dose in past. On aspirin 81 mg daily. Patient is on Lipitor 10 mg daily at bedtime Q4 hour neuro checks On cardiac monitoring PT, OT and Speech therapy are consulted For new onset atrial fibrillation and elevated troponin will defer the management to primary team. Consider cardiology consultation. We'll defer the rest of the medical management to primary team. Upon discharge, she needs to follow-up with her neurologist (Dr. Bishop) within 1-2 weeks. The plan is discussed with patient and her nurse Time with Patient: Less than 30
--- NOTE | 2022-04-01 13:48 | P.CRDCN ---
History of Present Illness Consult date: 04/01/22 Consult reason: atrial fibrillation History of present illness: The patient is an 86-year-old female who is admitted to the hospital with changes in speech. Apparently this had been progressive over the course of several weeks, in addition to swallowing difficulties. She was sent to the hospital by her primary care provider for concerns of a stroke. Initial EKG showed atrial fibrillation, which is a new finding for the patient. DIAGNOSTICS: EKG showed atrial fibrillation Chest x-ray shows chronic changes with out acute pulmonary process CT of the brain without contrast showed no acute intracranial hemorrhage or midline shift. Mild diffuse cerebral atrophy and chronic small vessel disease noted MRI of the brain shows no evidence of acute/subacute infarct with nonspecific white matter changes Lab data: WBC 7.1, hemoglobin 10.2, hematocrit 30.0, platelet 142, sodium 142, potassium 3.9, BUN 29, creatinine 1.07, TSH 2.4, troponin 0.05, 0.05 Vital signs: Blood pressure 156/72, respiratory rate 17, pulse 67, afebrile, and SpO2 96% on room air PAST MEDICAL HISTORY: Myasthenia gravis, hypertension, hyperlipidemia, mitral regurgitation REVIEW OF SYSTEMS: No fever or chills. No cough or expectoration. No diaphoresis. Patient denies headache, dizziness, blurred vision, double vision. Patient denies any stomach discomfort. No nausea, vomiting. No hematochezia. No hematemesis. Denies any black stools or blood in his stools. Denies dysuria or hematuria. No muscle weakness or numbness. Denies chest pain or chest pressure. Denies palpitations. Denies dizziness or lightheadedness. PHYSICAL EXAMINATION: This is an 86-year-old female in no apparent distress at the time of my examination. HEENT: Head is atraumatic, normocephalic. Pupils are equal, round. Sclerae anicteric. Conjunctivae are clear. Mucous membranes of the mouth are moist. Neck is supple. There is no jugular venous distention. No carotid bruit is heard. CHEST EXAMINATION: Lungs are clear to auscultation. No chest wall tenderness is noted on palpation or with deep breathing. HEART EXAMINATION: Irregular heart rate. S1, S2 heard. ABDOMEN: Soft, nontender. Bowel sounds are heard. No organomegaly noted. EXTREMITIES: 2+ peripheral pulses with no evidence of peripheral edema and no calf tenderness noted. NEUROLOGIC EXAMINATION: Patient is awake, alert and oriented x3. Mild speech impairment. FINAL ASSESSMENT AND PLAN: New onset of atrial fibrillation Dysarthria, TIA versus myasthenia gravis Dysphagia, awaiting barium swallow History of hypertension History of hyperlipidemia History of mitral regurgitation PLAN: Hold oral medications Clonidine patch 0.1 mg, discontinue when transitioned back to oral medications Heparin drip for anticoagulation, transition to Eliquis Further recommendations to be based upon clinical course I am dictating on behalf of Dr Mateo Zapien's history/physical and assessment/plan. Past Medical History Past Medical History: Hypertension Additional Past Medical History / Comment(s): tremors History of Any Multi-Drug Resistant Organisms: None Reported Past Surgical History: Cholecystectomy, Hysterectomy Additional Past Surgical History / Comment(s): bital foot surgery and nasal surgery for deviated septum, cataracts, glaucoma stents, mysthanis gravis Past Anesthesia/Blood Transfusion Reactions: No Reported Reaction Past Psychological History: No Psychological Hx Reported Smoking Status: Never smoker Past Alcohol Use History: None Reported Past Drug Use History: None Reported - Past Family History Father Family Medical History: Myocardial Infarction ([place]) Mother Additional Family Medical History / Comment(s): parkinsons Medications and Allergies Home Medications Medication Instructions Recorded Confirmed Type Lisinopril-Hctz 20-12.5 mg 1 tab PO BID@0800,199909/19/13 03/30/22 History [Zestoretic 20-12.5] Primidone [Mysoline] 125 mg PO HS@199909/19/13 03/30/22 History Fish Oil/Dha/Epa [Fish Oil 1,200 1 cap PO BID@0803/23/14 03/30/22 History mg Fish Oil] Fluticasone Nasal [place] [Flonase 2 spray NASAL DAILY@0800 03/28/16 03/30/22 History Nasal [place]] Aspirin [Adult Low Dose Aspirin EC] 81 mg PO DAILY@0800 01/10/17 03/30/22 History Vit C/E/Zn/Coppr/Lutein/Zeaxan 1 tab PO BID@0800,199901/10/17 03/30/22 History [Preservision Areds 2 Softgel] Pyridostigmine [Mestinon] 60 mg PO TID@0800,1200,1600 07/12/20 03/30/22 History Amoxic-Pot Clav 875-125Mg 1 tab PO BID 03/30/22 03/30/22 History [Augmentin 875-125] Atorvastatin [Lipitor] 10 mg PO HS@199903/30/22 03/30/22 History Denosumab [Prolia] 60 mg SQ Q168D 03/30/22 03/30/22 History Furosemide [Lasix] 20 mg PO DAILY@0800 03/30/22 03/30/22 History Lactose-Reduced Food [Boost Plus] 1 can PO W/BRKFST 03/30/22 03/30/22 History Levocetirizine Dihydrochloride 5 mg PO DAILY@0800 03/30/22 03/30/22 History [Xyzal] Oyster Shell Tab 500mg 1,500 mg PO DAILY@0800 03/30/22 03/30/22 History Propranolol LA [Inderal LA] 60 mg PO DAILY@0800 03/30/22 03/30/22 History Sertraline HCl [Zoloft] 50 mg PO DAILY@0800 03/30/22 03/30/22 History Topiramate [Topamax] 25 mg PO DAILY@0800 03/30/22 03/30/22 History Topiramate [Topamax] 50 mg PO HS@199903/30/22 03/30/22 History guaiFENesin [Mucinex] 600 mg PO Q12H 03/30/22 03/30/22 History Allergies Allergy/AdvReac Type Severity Reaction Status Date / Time sulfamethoxazole Allergy Rash/Hives Verified 03/30/22 16:44 [From Bactrim] trimethoprim [From Bactrim] Allergy Rash/Hives Verified 03/30/22 16:44 Physical Exam Vitals: Vital Signs Temp Pulse Pulse Resp BP BP Pulse Ox 04/01/22 04:00 97.6 F 81 18 163/84 100 03/31/22 23:36 97.9 F 73 15 138/74 96 03/31/22 20:00 97.5 F L 62 16 146/107 98 03/31/22 16:42 165/101 03/31/22 16:21 97.5 F L 90 18 98 03/31/22 10:56 166/68 Intake and Output 03/31/22 04/01/22 04/01/22 22:59 06:59 14:59 Intake Total 1050 Balance 1050 Intake: Intake, IV Titration 1050 Amount Potassium Chloride 10 meq 600 In Water For Injection 1 100ml.bag @ 100 mls/hr IVPB Q1HR [facility] Rx#: [id number] Sodium Chloride 0.9% 1, 450 000 ml @ 75 mls/hr IV . [id number] [facility] Rx#:[id number] Other: Voiding Method Toilet Toilet # Voids 1 5 Weight 43.545 kg Results 04/01/22 10:58 04/01/22 10:58 Current Medications Generic Name Dose Route Start Last Admin Trade Name Freq PRN Reason Stop Dose Admin Aspirin 81 mg 03/31/22 08:00 03/31/22 08:15 Aspirin 81 Mg PO 81 mg DAILY@0800 [facility] Administration Atorvastatin Calcium 10 mg 03/30/22 20:00 03/31/22 20:13 Atorvastatin 10 Mg Tab PO Not Given HS@2000 [facility] Lisinopril/HCTZ 1 each 03/30/22 20:00 03/31/22 20:13 Lisinopril-Hctz 20-12.5 Mg 1 Each Tab PO Not Given BID@0800,2000 [facility] Sodium Chloride 1,000 mls @ 75 mls/hr 03/30/22 18:00 03/31/22 20:09 Saline 0.9% IV 75 mls/hr .[id number] [facility] Administration Immune Globulin 20 gm/ IV 200 mls @ 0 mls/hr 04/01/22 12:00 Solution IV 04/01/22 12:01 .Q0M ONE Protocol Titrate Immune Globulin 20 gm/ IV 200 mls @ 0 mls/hr 04/02/22 12:00 Solution IV 04/02/22 12:01 .Q0M ONE Protocol Titrate Immune Globulin 20 gm/ IV 200 mls @ 0 mls/hr 04/03/22 12:00 Solution IV 04/03/22 12:01 .Q0M ONE Protocol Titrate Immune Globulin 10 gm/ IV 100 mls @ 0 mls/hr 04/04/22 12:00 Solution IV 04/04/22 12:01 .Q0M ONE Protocol Titrate Miscellaneous Information 1 each 03/31/22 21:10 Potassium Replacement Protocol 1 Each Misc MISCELLANE DAILY PRN Per Protocol Protocol Naloxone HCl 0.2 mg 03/30/22 17:57 Naloxone 0.4 Mg/Ml 1 Ml Vial IV Q2M PRN Opioid Reversal Primidone 125 mg 03/30/22 20:00 03/31/22 20:13 Primidone 50 Mg Tab PO Not Given HS@1999 [facility] Propranolol HCl 60 mg 03/31/22 08:00 03/31/22 08:16 Propranolol [place] 60 Mg Cap.Sa.24h PO 60 mg DAILY@0800 [facility] Administration Pyridostigmine [place] 60 mg 03/31/22 16:00 03/31/22 20:09 Pyridostigmine 60 Mg Tab PO 60 mg QID@08,12,16,20 [facility] Administration Sertraline HCl 50 mg 03/31/22 08:00 03/31/22 08:15 Sertraline 50 Mg Tab PO 50 mg DAILY@0800 [facility] Administration Topiramate 25 mg 03/31/22 08:00 03/31/22 08:19 Topiramate 25 Mg Tab PO 25 mg DAILY@0800 [facility] Administration Topiramate 50 mg 03/30/22 20:00 03/31/22 20:13 Topiramate 25 Mg Tab PO Not Given HS@1999 [facility] Intake and Output 03/31/22 04/01/22 04/01/22 22:59 06:59 14:59 Intake Total 1050 Balance 1050 Intake: Intake, IV Titration 1050 Amount Potassium Chloride 10 meq 600 In Water For Injection 1 100ml.bag @ 100 mls/hr IVPB Q1HR [facility] Rx#: [id number] Sodium Chloride 0.9% 1, 450 000 ml @ 75 mls/hr IV . [id number] [facility] Rx#:[id number] Other: Voiding Method Toilet Toilet # Voids 1 5 Weight 43.545 kg 03/31/22 03:41 03/31/22 03:41
[2022-04-01] MEDS: cloNIDine 0.1 MG/24HR PATCH TRANSDERM SCH (14:12)
[2022-04-01] MEDS: SODIUM CHLORIDE 0.9% 1,000 ML IV SCH ×2 (15:23→21:11)
--- NOTE | 2022-04-01 17:08 | P.PN ---
Subjective Progress Note Date: 04/01/22 86-year-old female with past medical history of myasthenia gravis, hypertension presents emergency Department with slurred speech. She reports that she has had progressive worsening speech difficulties and swallowing difficulties for the past 2 weeks. She has had trouble eating and drinking. She went and saw Dr. Crespo yesterday in office who recommended that she be evaluated at the hospital as there was concern for stroke. Patient denies previous history of stroke. She denies any weakness in her left or right side. No notable facial droop. No headache or visual changes. She does take her medications for myasthenia gravis which is prescribed by Dr. Bishop. Reports that her disease was first found because she couldn't pickers material handlers her head. Patient found to be in A. fib. Denies history of A. fib. Does not take any blood thinners. No other alleviating, precipitating or modifying factors Some of the workup during his hospital visit consisted of: Troponin slightly elevated. Symptoms 10.5 which is slightly elevated otherwise glucose sodium is within normal limits AST slightly elevated of 78. He gives the head is reported as no acute intracranial hemorrhage or midline shift. Suboptimal study. There is a mild diffuse cerebral atrophy and moderate the borderline advanced chronic small vessel ischemic changes redemonstrated. No significant change visualized portions from a CT. EKG is reported as age are fibrillation. Left anterior fascicular block. Anterolateral myocardial infarction. Acute IL. Objective - Vital Signs Vital signs: Vital Signs Temp 97.5 F L 04/01/22 12:00 Pulse 67 04/01/22 12:00 Resp 17 04/01/22 12:00 BP 182/94 04/01/22 12:00 Pulse Ox 97 04/01/22 12:00 FiO2 Intake & Output 03/31/22 04/01/22 04/01/22 18:59 06:59 18:59 Intake Total 1050 Balance 1050 Weight 43.545 kg Intake: Intake, IV Titration 1050 Amount Potassium Chloride 10 meq 600 In Water For Injection 1 100ml.bag @ 100 mls/hr IVPB Q1HR [facility] Rx#: [id number] Sodium Chloride 0.9% 1, 450 000 ml @ 75 mls/hr IV . [id number] [facility] Rx#:[id number] Other: Voiding Method Toilet # Voids 5 - Exam GENERAL: The patient is alert and oriented x3, not in any acute distress. Well developed, well nourished. HEENT: Pupils are round and equally reacting to light. EOMI. No scleral icterus. No conjunctival pallor. Normocephalic, atraumatic. No pharyngeal erythema. No thyromegaly. CARDIOVASCULAR: S1 and S2 present. No murmurs, rubs, or gallops. PULMONARY: Chest is clear to auscultation, no wheezing or crackles. ABDOMEN: Soft, nontender, nondistended, normoactive bowel sounds. No palpable organomegaly. MUSCULOSKELETAL: No joint swelling or deformity. EXTREMITIES: No cyanosis, clubbing, or pedal edema. NEUROLOGICAL: Gross neurological examination did not reveal any focal deficits. SKIN: No rashes. - Labs CBC & Chem 7: 04/01/22 10:58 04/01/22 10:58 Labs: Abnormal Lab Results - Last 24 Hours (Table) 04/01/22 04/01/22 Range/Units 10:58 10:58 RBC 2.92 L (3.80-5.40) m/uL Hgb 10.2 L (11.4-16.0) gm/dL Hct 30.0 L (34.0-46.0) % MCV 102.8 H (80.0-100.0) fL MCH 35.1 H (25.0-35.0) pg Plt Count 142 L (150-450) k/uL Lymphocytes # 0.9 L (1.0-4.8) k/uL Chloride 109 H (98-107) mmol/L Carbon Dioxide 21 L (22-30) mmol/L BUN 29 H (7-17) mg/dL Creatinine 1.07 H (0.52-1.04) mg/dL Assessment and Plan Assessment: 1. Acute onset dysarthria/dysphagia; likely myasthenia gravis exacerbation - Patient has been evaluated by neurology and has been placed on IVIG for 5 days; further workup is in progress - Neurology recommending transfer to ICU if patient develops labored breathing or drastic worsening of neurological condition - Increase Mestinon 60 mg 3 times a day up to 60 mg 4 times a day 2. Rule out acute versus subacute ischemic stroke - MRI of the brain is ordered to rule out acute versus subacute ischemic stroke given new onset atrial fibrillation; TSH, vitamin B12 and folic acid is ordered - Patient is recommended to continue aspirin and Lipitor - Monitor neuro checks per stroke protocol 3. New onset atrial fibrillation; we will monitor EKG; we will follow with IV heparin given possibility of acute versus subacute CVA; patient remains rate controlled; consult cardiology 4. Elevated troponin; troponin has been trended and remains flat; no signs of ischemia on EKG; recommended 2-D echo 5. Hypercalcemia; likely related to dehydration due to poor oral intake due to dysphagia; we will start patient on slow IV fluid hydration; monitor ionized calcium level closely 6. Essential tremors; Inderal LA 60 mg daily 7. Hypertension; Zestoretic 2012 0.5 mg twice a day; Lasix 20 mg daily 8. Hyperlipidemia; Lipitor 10 mg by mouth daily at bedtime. 9. Seasonal ALLERGIES; patient uses Flonase nasal spray and Xyzal 5 mg daily
[2022-04-01] MEDS: METOPROLOL TARTRATE 5 MG/5 ML VIAL IVP SCH (19:01)
[2022-04-01] MEDS: FUROSEMIDE 20 MG TAB PO SCH (19:15)
[2022-04-01] MEDS: PRIMIDONE 50 MG TAB PO SCH (21:20)
[2022-04-01] MEDS: ATORVASTATIN 10 MG TAB PO SCH (21:20)
[2022-04-02] MEDS: METOPROLOL TARTRATE 5 MG/5 ML VIAL IVP SCH ×4 (05:13→18:16)
[2022-04-02 07:38] LABS: Calcium 8.8 mg/dL (8.4-10.2); Potassium 3.4 mmol/L (3.5-5.1)
[2022-04-02] MEDS: ASPIRIN 81 MG PO SCH (08:05)
[2022-04-02] MEDS: PROPRANOLOL LA 60 MG CAP.SA.24H PO SCH (08:05)
[2022-04-02] MEDS: LISINOPRIL-HCTZ 20-12.5 MG 1 EACH TAB PO SCH ×2 (08:05→21:01)
[2022-04-02] MEDS: SERTRALINE 50 MG TAB PO SCH (08:06)
[2022-04-02] MEDS: TOPIRAMATE 25 MG TAB PO SCH ×2 (08:06→21:01)
[2022-04-02] MEDS ORDERED: Potassium Replacement Protocol 1 EACH MISC MISCELLANE PRN (08:45)
[2022-04-02] MEDS: PYRIDOSTIGMINE 60 MG TAB PO SCH ×3 (08:46→16:31)
[2022-04-02] MEDS ORDERED: cloNIDine 0.1 MG/24HR PATCH TRANSDERM SCH (11:30)
--- NOTE | 2022-04-02 11:43 | P.PN ---
Subjective Progress Note Date: 04/02/22 The patient is seen at bedside and per nurse she continues to have difficulty swallowing. She could not cooperate with respiratory team for NIF or VC and was attempted multiple times. She is tachycardiac today. Objective - Vital Signs Vital signs: Vital Signs Temp 98.0 F 04/02/22 08:00 Pulse 109 H 04/02/22 10:10 Resp 17 04/02/22 10:10 BP 172/111 04/02/22 10:10 Pulse Ox 97 04/02/22 10:10 FiO2 Intake & Output 04/01/22 04/02/22 04/02/22 18:59 06:59 18:59 Intake Total 300 Balance 300 Intake: Intake, IV Titration 300 Amount Sodium Chloride 0.9% 1, 300 000 ml @ 75 mls/hr IV . [id number] [facility] Rx#:[id number] Other: Voiding Method Toilet Toilet Toilet # Voids 3 1 - Exam GENERAL: The patient is sitting in a recliner chair and is not in acute distress. NEUROLOGICAL: Higher mental function: The patient is awake, alert, oriented to self, place and time. Patient is following commands. No aphasia and no neglect. Cranial nerves: The pupils are round, equal and reactive to light and accom modation. Visual [place] are full to confrontation throughout. Extraocular movement is intact no nystagmus is noted. Head extension is 5/5 while felxion is 3-4-. Facial sensation is normal to touch throughout. The facial strength is normal throughout. Hearing is severely decreased bilaterally to hand rub (does not have hearing aids with her). Tongue is moving any difficulty. +ve nasal tone but I felt is doing better today. Shoulder shrug is normal bilaterally. Motor: The strength is 5 over 5 throughout. Normal tone and bulk. Cerebellum: Normal finger to nose bilaterally. Patient has tremor with action but when resting predominately. Sensation: Sensation is normal to touch throughout. Reflexes (right/left): Left brachioradialis and biceps are 2-3+. Otherwise2+ throughout. Plantars are mute bilaterally. Some of the workup during his hospital visit consisted of: Troponin slightly elevated. Symptoms 10.5 which is slightly elevated otherwise glucose sodium is within normal limits AST slightly elevated of 78. CT head is reported as no acute intracranial hemorrhage or midline shift. Suboptimal study. There is a mild diffuse cerebral atrophy and moderate the borderline advanced chronic small vessel ischemic changes redemonstrated. No significant change visualized portions from a CT. TSH is 2.480 Ionized calcium is 5.0 MRI brain is reported as no evidence of acute/subacute infarct. Nonspecific white matter changes, likely secured to small vessel ischemic disease. Scattered foci of susceptibility artifact likely related to prior microhemorrhages. Changes of chronic sinusitis. I personally reviewed the MRI and there is no acute or subacute ischemia. - Labs CBC & Chem 7: 04/01/22 10:58 04/02/22 06:49 Labs: Abnormal Lab Results - Last 24 Hours (Table) 04/01/22 04/02/22 04/02/22 Range/Units 10:58 00:39 06:49 APTT 45.3 H (22.0-30.0) sec Potassium 3.4 L (3.5-5.1) mmol/L Chloride 109 H 112 H (98-107) mmol/L Carbon Dioxide 21 L (22-30) mmol/L BUN 29 H 29 H (7-17) mg/dL Creatinine 1.07 H 1.07 H (0.52-1.04) mg/dL Glucose 68 L (74-99) mg/dL 04/02/22 Range/Units 06:49 APTT 53.4 H (22.0-30.0) sec Potassium (3.5-5.1) mmol/L Chloride (98-107) mmol/L Carbon Dioxide (22-30) mmol/L BUN (7-17) mg/dL Creatinine (0.52-1.04) mg/dL Glucose (74-99) mg/dL Assessment and Plan Assessment: Acute dysarthria and dysphagia for the past 2-3 weeks: Due to Myasthenia Gravis exacerbation. No acute or subacute ischemic stroke Hypercalcemia New onset atrial fibrillation Slightly elevated troponin History of myasthenia gravis Essential tremor History of Hypertension and hypertension is elevated in our facility. Very hard of hearing Plan: Continue IVIG for 5 days (started on 03/31/2022. Today is day 35). Ordered NIF and FVC to be evaluated by Respiratory therapist but could not cooperate for examination and per nurse was attempting multiple time. If patient has short of breath, labored breathing or drastic worsening of neurological condition then recommend to be transferred to ICU. Continue Mestinon 60 mg 1 tablet 3 times a day (initially increased to qid but per family could not tolerate 4th dose in past). Consider placing her on low dose Prednisone prior to discharge vs consideration of IVIG every 3-4 weeks as outpatient. CONSIDER PEG TUBE IF CONTINUES TO DYSPHAGIC. On aspirin 81 mg daily. Patient is on Lipitor 10 mg daily at bedtime Q4 hour neuro checks On cardiac monitoring. She had tachycardia and will defer management to primary team. PT, OT and Speech therapy are consulted For new onset atrial fibrillation and elevated troponin will defer the management to primary team. Consider cardiology consultation. We'll defer the rest of the medical management to primary team. Upon discharge, she needs to follow-up with her neurologist (Dr. Bishop) within 1-2 weeks. The plan is discussed with patient and her nurse Dr. Richardson will start neurology service tomorrow A.M. Time with Patient: Less than 30
[2022-04-02] MEDS ORDERED: IMMUNE GLOBULIN (GAMMAGARD) 20 GM in EMPTY BAG 1 BAG IV ONE (12:00)
--- NOTE | 2022-04-02 13:06 | P.PN ---
Subjective Progress Note Date: 04/02/22 The patient is an 86-year-old female who is currently admitted to the hospital with dysarthria. Cardiology was consulted for new onset of atrial fibrillation. 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 During this hospital admission she has failed a bedside swallow screen and will be undergoing barium swallow screen tomorrow. Unfortunately she is unable to take oral medications. On 04/01/2022 she was started on a heparin drip in addition to a clonidine patch for hypertension. She did have some episodes of A. fib with RVR, most notably when she is up ambulating around the room. Heart rates can peak between 160 in 180 bpm. The patient was interviewed and examined lying in bed. Her heart rate quickly normalized to 75 after being in the restroom with a heart rate of 180 bpm. She states she feels weak and unwell. GENERAL: Well-appearing, well-nourished and in no acute distress. Resting tremors. NECK: Supple without JVD or thyromegaly. LUNGS: Breath sounds clear to auscultation bilaterally. Respiration equal and unlabored. No wheezes, rales or rhonchi. HEART: Irregular rate and rhythm. S1 and S2 heard. EXTREMITIES: Normal range of motion, no edema. No clubbing or cyanosis. Peripheral pulses intact and strong. VITALS: Blood pressure 172/83, heart rate 72, afebrile, SpO2 95% on room air TELEMETRY: Persistent atrial fibrillation with episodes of RVR up to 180 bpm LABS: Sodium 143, potassium 3.4, BUN 29, creatinine 1.07 IMPRESSION: New onset of atrial fibrillation Dysarthria, TIA versus myasthenia gravis Dysphagia, awaiting barium swallow History of hypertension History of hyperlipidemia History of mitral regurgitation PLAN: Increase clonidine patch Low-dose IV metoprolol for sustained heart rates greater than 150 Transition to oral medications once patient passes barium swallow or PEG tube is placed Further recommendations to be based upon clinical course I am dictating on behalf of Dr Mateo Zapien's history/physical and asse ssment/plan. Objective - Vital Signs Vital signs: Vital Signs Temp 98.0 F 04/02/22 08:00 Pulse 109 H 04/02/22 10:10 Resp 17 04/02/22 10:10 BP 172/111 04/02/22 10:10 Pulse Ox 97 01/08/23 10:10 FiO2 Intake & Output 04/01/22 04/02/22 04/02/22 18:59 06:59 18:59 Intake Total 300 Balance 300 Intake: Intake, IV Titration 300 Amount Sodium Chloride 0.9% 1, 300 000 ml @ 75 mls/hr IV . [id number] [facility] Rx#:[id number] Other: Voiding Method Toilet Toilet Toilet # Voids 3 1 - Labs CBC & Chem 7: 04/01/22 10:58 04/02/22 06:49 Labs: Abnormal Lab Results - Last 24 Hours (Table) 04/02/22 04/02/22 04/02/22 Range/Units 00:39 06:49 06:49 APTT 45.3 H 53.4 H (22.0-30.0) sec Potassium 3.4 L (3.5-5.1) mmol/L Chloride 112 H (98-107) mmol/L BUN 29 H (7-17) mg/dL Creatinine 1.07 H (0.52-1.04) mg/dL Glucose 68 L (74-99) mg/dL
--- NOTE | 2022-04-02 15:50 | P.PN ---
Subjective Progress Note Date: 04/02/22 Principal diagnosis: Acute dysarthria/dysphagia related to myasthenia gravis exacerbation New-onset atrial fibrillation Elevated troponin likely demand ischemia 86-year-old female with past medical history of myasthenia gravis, hypertension presents emergency Department with slurred speech. She reports that she has had progressive worsening speech difficulties and swallowing difficulties for the past 2 weeks. She has had trouble eating and drinking. She went and saw Dr. Crespo yesterday in office who recommended that she be evaluated at the hospital as there was concern for stroke. Patient denies previous history of stroke. She denies any weakness in her left or right side. No notable facial droop. No headache or visual changes. She does take her medications for myasthenia gravis which is prescribed by Dr. Bishop. Reports that her disease was first found because she couldn't picker/puller her head. Patient found to be in A. fib. Denies h istory of A. fib. Does not take any blood thinners. No other alleviating, precipitating or modifying factors Some of the workup during his hospital visit consisted of: Troponin slightly elevated. Symptoms 10.5 which is slightly elevated otherwise glucose sodium is within normal limits AST slightly elevated of 78. He gives the head is reported as no acute intracranial hemorrhage or midline shift. Suboptimal study. There is a mild diffuse cerebral atrophy and moderate the borderline advanced chronic small vessel ischemic changes redemonstrated. No significant change visualized portions from a CT. EKG is reported as age are fibrillation. Left anterior fascicular block. Anterolateral myocardial infarction. Acute PA. 24 hour interval change 04/02/2022 Patient is seen and evaluated with family at bedside; does report some improvement physically Continue IVIG for 5 days (started on 03/31/2022. Today is day 3/5). Ordered NIF and FVC to be evaluated by Respiratory therapist but could not cooperate for examination and per nurse was attempting multiple time. Continue Mestinon 60 mg 1 tablet 3 times a day (initially increased to qid but per family patient could not tolerate 4th dose in past). Consider placing her on low dose Prednisone prior to discharge vs consideration of IVIG every 3-4 weeks as outpatient. -- Possible PEG tube placement if dysphagia does not improve On aspirin 81 mg daily. Patient is on Lipitor 10 mg daily at bedtime Q4 hour neuro checks Increase clonidine patch Low-dose IV metoprolol for sustained heart rates greater than 150 Transition to oral medications once patient passes barium swallow or PEG tube is placed Objective - Vital Signs Vital signs: Vital Signs Temp 98.0 F 04/02/22 08:00 Pulse 109 H 04/02/22 10:10 Resp 17 04/02/22 10:10 BP 172/111 04/02/22 10:10 Pulse Ox 97 04/02/22 10:10 FiO2 Intake & Output 04/01/22 04/02/22 04/02/22 18:59 06:59 18:59 Intake Total 300 Balance 300 Intake: Intake, IV Titration 300 Amount Sodium Chloride 0.9% 1, 300 000 ml @ 75 mls/hr IV . [id number] [facility] Rx#:[id number] Other: Voiding Method Toilet Toilet Toilet # Voids 3 1 - Exam GENERAL: The patient is alert and oriented x3, not in any acute distress. Well developed, well nourished. HEENT: Pupils are round and equally reacting to light. EOMI. No scleral icterus. No conjunctival pallor. Normocephalic, atraumatic. No pharyngeal erythema. No thyromegaly. CARDIOVASCULAR: S1 and S2 present. No murmurs, rubs, or gallops. PULMONARY: Chest is clear to auscultation, no wheezing or crackles. ABDOMEN: Soft, nontender, nondistended, normoactive bowel sounds. No palpable organomegaly. MUSCULOSKELETAL: No joint swelling or deformity. EXTREMITIES: No cyanosis, clubbing, or pedal edema. NEUROLOGICAL: Gross neurological examination did not reveal any focal deficits. SKIN: No rashes. - Labs CBC & Chem 7: 04/01/22 10:58 04/02/22 06:49 Labs: Abnormal Lab Results - Last 24 Hours (Table) 04/01/22 04/01/22 04/02/22 Range/Units 10:58 10:58 00:39 RBC 2.92 L (3.80-5.40) m/uL Hgb 10.2 L (11.4-16.0) gm/dL Hct 30.0 L (34.0-46.0) % MCV 102.8 H (80.0-100.0) fL MCH 35.1 H (25.0-35.0) pg Plt Count 142 L (150-450) k/uL Lymphocytes # 0.9 L (1.0-4.8) k/uL APTT 45.3 H (22.0-30.0) sec Potassium (3.5-5.1) mmol/L Chloride 109 H (98-107) mmol/L Carbon Dioxide 21 L (22-30) mmol/L BUN 29 H (7-17) mg/dL Creatinine 1.07 H (0.52-1.04) mg/dL Glucose (74-99) mg/dL 04/02/22 04/02/22 Range/Units 06:49 06:49 RBC (3.80-5.40) m/uL Hgb (11.4-16.0) gm/dL Hct (34.0-46.0) % MCV (80.0-100.0) fL MCH (25.0-35.0) pg Plt Count (150-450) k/uL Lymphocytes # (1.0-4.8) k/uL APTT 53.4 H (22.0-30.0) sec Potassium 3.4 L (3.5-5.1) mmol/L Chloride 112 H (98-107) mmol/L Carbon Dioxide (22-30) mmol/L BUN 29 H (7-17) mg/dL Creatinine 1.07 H (0.52-1.04) mg/dL Glucose 68 L (74-99) mg/dL Assessment and Plan Assessment: 1. Acute onset dysarthria/dysphagia; likely myasthenia gravis exacerbation - Patient has been evaluated by neurology and has been placed on IVIG for 5 days; further workup is in progress - Neurology recommending transfer to ICU if patient develops labored breathing or drastic worsening of neurological condition - Increase Mestinon 60 mg 3 times a day up to 60 mg 4 times a day 2. Rule out acute versus subacute ischemic stroke - MRI of the brain is ordered to rule out acute versus subacute ischemic stroke given new onset atrial fibrillation; TSH, vitamin B12 and folic acid is ordered - Patient is recommended to continue aspirin and Lipitor - Monitor neuro checks per stroke protocol 3. New onset atrial fibrillation; we will monitor EKG; we will follow with IV heparin given possibility of acute versus subacute CVA; patient remains rate controlled; consult cardiology 4. Elevated troponin; troponin has been trended and remains flat; no signs of ischemia on EKG; recommended 2-D echo 5. Hypercalcemia; likely related to dehydration due to poor oral intake due to dysphagia; we will start patient on slow IV fluid hydration; monitor ionized calcium level closely 6. Essential tremors; Inderal LA 60 mg daily 7. Hypertension; Zestoretic 2012 0.5 mg twice a day; Lasix 20 mg daily 8. Hyperlipidemia; Lipitor 10 mg by mouth daily at bedtime. 9. Seasonal ALLERGIES; patient uses Flonase nasal spray and Xyzal 5 mg daily
[2022-04-02] MEDS: POTASSIUM CHLORIDE 10 MEQ in WATER FOR INJECTION 1 100ML.BAG IVPB SCH ×4 (16:26→23:45)
[2022-04-02] MEDS: HEPARIN SOD,PORK IN 0.45% NACL 25,000 UNIT in 0.45% NACL 1 250ML.BAG IV SCH (16:28)
[2022-04-02] MEDS: cloNIDine 0.1 MG/24HR PATCH TRANSDERM SCH (16:31)
[2022-04-02] MEDS: SODIUM CHLORIDE 0.9% 1,000 ML IV SCH (16:31)
[2022-04-02] MEDS: ATORVASTATIN 10 MG TAB PO SCH (21:01)
[2022-04-02] MEDS: PRIMIDONE 50 MG TAB PO SCH (21:01)
[2022-04-02] MEDS: FAMOTIDINE 20 MG/2 ML VIAL IV SCH (21:03)
[2022-04-02] MEDS: NITROGLYCERIN OINT 1 INCH/GM PACKET TOPICAL SCH (21:46)
[2022-04-03] MEDS: METOPROLOL TARTRATE 5 MG/5 ML VIAL IVP SCH ×4 (00:26→18:36)
[2022-04-03] MEDS: SODIUM CHLORIDE 0.9% 1,000 ML IV SCH (02:36)
[2022-04-03] MEDS: NITROGLYCERIN OINT 1 INCH/GM PACKET TOPICAL SCH ×3 (06:03→18:36)
[2022-04-03 07:52] LABS: Basophils % (A) 1 %; Eosinophils % (A) 0 %; HCT 30.1 % (34.0-46.0); Lymphocytes # (A) 0.8 k/uL (1.0-4.8); Lymphocytes % (A) 13 %; MCH 33.9 pg (25.0-35.0); MCHC 33.1 g/dL (31.0-37.0); MCV 102.5 fL (80.0-100.0); Macrocytosis Slight; Monocytes # (A) 0.4 k/uL (0-1.0); Monocytes % (A) 6 %; Neutrophils # (A) 5.3 k/uL (1.3-7.7); Neutrophils % (A) 79 %; Platelet Count 138 k/uL (150-450); RBC 2.94 m/uL (3.80-5.40); RDW 14.1 % (11.5-15.5); WBC 6.7 k/uL (3.8-10.6)
[2022-04-03] MEDS: DEXTROSE 5%-0.45% NACL 1,000 ML IV SCH (08:30)
--- NOTE | 2022-04-03 09:53 | P.PN ---
Subjective Progress Note Date: 04/03/22 HISTORY OF PRESENT ILLNESS: The patient is an 86-year-old female who is currently admitted to the hospital with dysarthria. Cardiology was consulted for new onset of atrial fibrillation. 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 During this hospital admission she has failed a bedside swallow screen and will be undergoing barium swallow screen tomorrow. Unfortunately she is unable to take oral medications. On 04/01/2022 she was started on a heparin drip in addition to a clonidine patch for hypertension. She did have some episodes of A. fib with RVR, most notably when she is up ambulating around the room. Heart rates can peak between 160 in 180 bpm. 04/02/2022 The patient was interviewed and examined lying in bed. Her heart rate quickly normalized to 75 after being in the restroom with a heart rate of 180 bpm. She states she feels weak and unwell. 04/03/2022 Patient examined this morning at the bedside. Patient denies chest pain or pressure. Denies SOB. Telemetry reveals atrial fibrillation with controlled ventricular rates. Patient remains NPO. She is scheduled for MDS today. She remains on IV heparin and IVP metoprolol. She is also receiving a catapres patch secondary to her NPO status. Blood pressures are elevated this morning. PHYSICAL EXAM: VITAL SIGNS: Reviewed. GENERAL: Well-developed in no acute distress. NECK: Supple. No JVD or thyromegaly LUNGS: Respirations even and unlabored. Lungs essentially clear to auscultation bilaterally. HEART: Irregular rate and rhythm. S1 and S2 heard. EXTREMITIES: Normal range of motion. No clubbing or cyanosis. Peripheral pul ses intact. No lower extremity edema ASSESSMENT: New onset persistent atrial fibrillation Dysarthria, secondary to myasthenia gravis exacerbation, neurology following Dysphagia, awaiting barium swallow History of hypertension History of hyperlipidemia History of mitral regurgitation PLAN: Increase catapres patch secondary to uncontrolled hypertension Continue IV heparin and IVP metoprolol secondary to NPO status Change to PO medications when patient is able to tolerate. Possibility of PEG tube being discussed. Continue telemetry monitoring Continue to monitor blood pressure Further recommendations pending patient course Nurse practitioner note has been reviewed by physician. Signing provider agrees with the documented findings, assessment, and plan of care. Objective - Vital Signs Vital signs: Vital Signs Temp 97.5 F L 04/03/22 04:00 Pulse 129 H 04/03/22 04:00 Resp 18 04/03/22 04:00 BP 122/84 04/03/22 04:00 Pulse Ox 95 04/03/22 04:00 FiO2 Intake & Output 04/02/22 04/03/22 04/03/22 18:59 06:59 18:59 Intake Total 594.907 550 Balance 594.907 550 Intake: Intake, IV Titration 594.907 550 Amount Heparin Sod,Pork in 0.45% 144.907 NaCl 25,000 unit In 0.45 % NaCl 1 250ml.bag @ 12 UNITS/KG/HR 5.225 mls/hr IV .Q24H [facility] Rx#: [id number] Potassium Chloride 10 meq 100 In Water For Injection 1 100ml.bag @ 100 mls/hr IVPB Q1HR [facility] Rx#: [id number] Sodium Chloride 0.9% 1, 450 450 000 ml @ 75 mls/hr IV . [id number] [facility] Rx#:[id number] Other: Voiding Method Toilet Bedpan # Voids 0 - Labs CBC & Chem 7: 04/03/22 07:13 04/03/22 07:13 Labs: Abnormal Lab Results - Last 24 Hours (Table) 04/03/22 04/03/22 04/03/22 Range/Units 07:13 07:13 07:13 RBC 2.94 L (3.80-5.40) m/uL Hgb 10.0 L (11.4-16.0) gm/dL Hct 30.1 L (34.0-46.0) % MCV 102.5 H (80.0-100.0) fL Plt Count 138 L (150-450) k/uL Lymphocytes # 0.8 L (1.0-4.8) k/uL APTT 61.0 H (22.0-30.0) sec Potassium 3.4 L (3.5-5.1) mmol/L
[2022-04-03] MEDS ORDERED: cloNIDine 0.3 MG/24HR PATCH TRANSDERM SCH (11:00)
--- NOTE | 2022-04-03 11:25 | P.PN ---
Subjective 86-year-old female with past medical history of myasthenia gravis, hypertension presents emergency Department with slurred speech. She reports that she has had progressive worsening speech difficulties and swallowing difficulties for the past 2 weeks. She has had trouble eating and drinking. She went and saw Dr. Crespo yesterday in office who recommended that she be evaluated at the hospital as there was concern for stroke. Patient denies previous history of stroke. She denies any weakness in her left or right side. No notable facial droop. No headache or visual changes. She does take her medications for myasthenia gravis which is prescribed by Dr. Bishop. 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 Patient found to be in A. fib. Denies history of A. fib. Does not take any blood thinners. No other alleviating, precipitating or modifying factors Some of the workup during his hospital visit consisted of: Troponin slightly elevated. Symptoms 10.5 which is slightly elevated otherwise glucose sodium is within normal limits AST slightly elevated of 78. He gives the head is reported as no acute intracranial hemorrhage or midline shift. Suboptimal study. There is a mild diffuse cerebral atrophy and moderate the borderline advanced chronic small vessel ischemic changes redemonstrated. No significant change visualized portions from a CT. EKG is reported as age are fibrillation. Left anterior fascicular block. Anterolateral myocardial infarction. Acute UT. 24 hour interval change 04/02/2022 Patient is seen and evaluated with family at bedside; does report some improvement physically Continue IVIG for 5 days (started on 03/31/2022. Today is day 3/5). Ordered NIF and FVC to be evaluated by Respiratory therapist but could not cooperate for examination and per nurse was attempting multiple time. Continue Mestinon 60 mg 1 tablet 3 times a day (initially increased to qid but per family patient could not tolerate 4th dose in past). Consider placing her on low dose Prednisone prior to discharge vs consideration of IVIG every 3-4 weeks as outpatient. -- Possible PEG tube placement if dysphagia does not improve On aspirin 81 mg daily. Patient is on Lipitor 10 mg daily at bedtime Q4 hour neuro checks Increase clonidine patch Low-dose IV metoprolol for sustained heart rates greater than 150 Transition to oral medications once patient passes barium swallow or PEG tube is placed Resume the care of the patient 04/03/2022 Patient is very weak and cachectic. There is concerned of her dysphagia and dysarthria secondary to my seeing the grave's exacerbation and she's been currently treated with IVIG, last dose tomorrow within urology following Swallow and speech evaluation is consulted today, patient may need PEG tube placement, discussed with staff Cardiology following the case for uncontrolled hypertension and A. fib and condition currently on heparin drip and clonidine patch Also we'll start gentle hydration of D5 half-normal saline at 50 mL per hour while nothing by mouth Review of systems CONSTITUTIONAL: No fever, no malaise, no fatigue. HEENT: No recent visual problems or hearing problems. Denied any sore throat. CARDIOVASCULAR: No orthopnea, PND, no palpitations, no syncope. PULMONARY: No shortness of breath, no cough, no hemoptysis. GASTROINTESTINAL: No diarrhea, no nausea, no vomiting, no abdominal pain. Normoactive bowel sounds. NEUROLOGICAL: No headaches, no weakness, no numbness. Active Medications Generic Name Dose Route Start Last Admin Trade Name Freq PRN Reason Stop Dose Admin Aspirin 81 mg 03/31/22 08:00 04/02/22 08:05 Aspirin 81 Mg PO Not Given DAILY@0800 [facility] Atorvastatin Calcium 10 mg 03/30/22 20:00 04/02/22 21:01 Atorvastatin 10 Mg Tab PO Not Given HS@2000 [facility] Clonidine HCl 1 patch 04/03/22 11:00 04/03/22 10:17 Clonidine 0.3 Mg/24hr Patch TRANSDERM 1 patch Q7D [facility] Administration Famotidine 20 mg 04/02/22 21:00 04/02/22 21:03 Famotidine 20 Mg/2 Ml Vial IV 20 mg HS [facility]IRI Administration Lisinopril/HCTZ 1 each 03/30/22 20:00 04/02/22 21:01 Lisinopril-Hctz 20-12.5 Mg 1 Each Tab PO Not Given BID@0800,2000 [facility] Sodium Chloride 1,000 mls @ 75 mls/hr 03/30/22 18:00 04/03/22 02:36 Saline 0.9% IV Not Given .[id number] [facility] Immune Globulin 20 gm/ IV 200 mls @ 0 mls/hr 04/03/22 12:00 Solution IV 04/03/22 12:01 .Q0M ONE Protocol Titrate Immune Globulin 10 gm/ IV 100 mls @ 0 mls/hr 04/04/22 12:00 Solution IV 04/04/22 12:01 .Q0M ONE Protocol Titrate Heparin Sodium/Sodium Chloride 250 mls @ 5.225 mls/hr 04/01/22 10:45 04/03/22 10:18 25,000 unit/ Sodium Chloride IV 12 units/kg/hr .Q24H [facility] 5.225 mls/hr Titration Protocol 12 UNITS/KG/HR Dextrose/Sodium Chloride 1,000 mls @ 50 mls/hr 04/03/22 08:15 Dextrose 5%-1/2ns Iv Soln IV .Q20H [facility] Metoprolol Tartrate 5 mg 04/01/22 19:00 04/03/22 05:47 Metoprolol Tartrate 5 Mg/5 Ml Vial IVP 5 mg Q6HR [facility] Administration Miscellaneous Information 1 each 04/02/22 08:45 Potassium Replacement Protocol 1 Each Misc MISCELLANE DAILY PRN Per Protocol Protocol Naloxone HCl 0.2 mg 03/30/22 17:57 Naloxone 0.4 Mg/Ml 1 Ml Vial IV Q2M PRN Opioid Reversal Nitroglycerin 1 inch 04/03/22 00:00 04/03/22 06:03 Nitroglycerin Oint 1 Inch/Gm Packet TOPICAL Not Given Q6HR [facility] Primidone 125 mg 03/30/22 20:00 04/02/22 21:01 Primidone 50 Mg Tab PO Not Given HS@1999 [facility] Propranolol HCl 60 mg 03/31/22 08:00 04/02/22 08:05 Propranolol La 60 Mg Cap.Sa.24h PO Not Given DAILY@0800 [facility] Pyridostigmine Davy 60 mg 04/02/22 08:00 04/02/22 16:31 Pyridostigmine 60 Mg Tab PO 60 mg TID@08,12,16 [facility] Administration Sertraline HCl 50 mg 03/31/22 08:00 04/02/22 08:06 Sertraline 50 Mg Tab PO Not Given DAILY@0800 [facility] Topiramate 25 mg 03/31/22 08:00 04/02/22 08:06 Topiramate 25 Mg Tab PO Not Given DAILY@0800 [facility] Topiramate 50 mg 03/30/22 20:00 04/02/22 21:01 Topiramate 25 Mg Tab PO Not Given HS@1999 [facility] Objective - Vital Signs Vital signs: Vital Signs Temp 97.7 F 04/03/22 09:50 Pulse 92 04/03/22 09:50 Resp 20 04/03/22 09:50 BP 209/98 04/03/22 09:50 Pulse Ox 94 L 04/03/22 09:50 FiO2 Intake & Output 04/02/22 04/03/22 04/03/22 18:59 06:59 18:59 Intake Total 594.907 550 93.179 Balance 594.907 550 93.179 Intake: Intake, IV Titration 594.907 550 93.179 Amount Heparin Sod,Pork in 0.45% 144.907 93.179 NaCl 25,000 unit In 0.45 % NaCl 1 250ml.bag @ 12 UNITS/KG/HR 5.225 mls/hr IV .Q24H [facility] Rx#: [id number] Potassium Chloride 10 meq 100 In Water For Injection 1 100ml.bag @ 100 mls/hr IVPB Q1HR [facility] Rx#: [id number] Sodium Chloride 0.9% 1, 450 450 000 ml @ 75 mls/hr IV . [id number] [facility] Rx#:[id number] Other: Voiding Method Toilet Bedpan Bedpan # Voids 0 2 - Exam -GENERAL: The patient is alert and oriented x1, mildly confused, not in any acute distress. Cachectic with mild tremor HEENT: Pupils are round and equally reacting to light. EOMI. No scleral icterus. No conjunctival pallor. Normocephalic, atraumatic. No pharyngeal erythema. No thyromegaly. CARDIOVASCULAR: S1 and S2 present. No murmurs, rubs, or gallops. PULMONARY: Chest is clear to auscultation, no wheezing or crackles. ABDOMEN: Soft, nontender, nondistended, normoactive bowel sounds. No palpable organomegaly. MUSCULOSKELETAL: No joint swelling or deformity. EXTREMITIES: No cyanosis, clubbing, or pedal edema. NEUROLOGICAL: Gross neurological examination did not reveal any focal deficits. SKIN: No rashes. no petechiae. - Labs CBC & Chem 7: 04/03/22 07:13 04/03/22 07:13 Labs: Abnormal Lab Results - Last 24 Hours (Table) 04/03/22 04/03/22 04/03/22 Range/Units 07:13 07:13 07:13 RBC 2.94 L (3.80-5.40) m/uL Hgb 10.0 L (11.4-16.0) gm/dL Hct 30.1 L (34.0-46.0) % MCV 102.5 H (80.0-100.0) fL Plt Count 138 L (150-450) k/uL Lymphocytes # 0.8 L (1.0-4.8) k/uL APTT 61.0 H (22.0-30.0) sec Potassium 3.4 L (3.5-5.1) mmol/L Assessment and Plan Assessment: 1. Acute onset dysarthria/dysphagia; likely myasthenia gravis exacerbation - Patient has been evaluated by neurology and has been placed on IVIG for 5 days; - Neurology recommending transfer to ICU if patient develops labored breathing or drastic worsening of neurological condition - Increase Mestinon 60 mg 3 times a day up to 60 mg 4 times a day - MRI of the brain is negative for acute/subacute stroke 2. Dysphagia, secondary to above ; with Severe calories protein malnutrition - swallow evaluation - Possible need PEG tube 3. New onset atrial fibrillation; we will monitor EKG; we will follow with IV heparin given possibility of acute versus subacute CVA; patient remains rate controlled; consult cardiology. Also patient on clonidine 4. Elevated troponin; troponin has been trended and remains flat; no signs of ischemia on EKG; recommended 2-D echo 5. Hypercalcemia; likely related to dehydration due to poor oral intake due to dysphagia; we will start patient on slow IV fluid hydration; monitor ionized calcium level closely 6. Essential tremors; Inderal LA 60 mg daily 7. Hypertension; Zestoretic 2012 0.5 mg twice a day; Lasix 20 mg daily 8. Hyperlipidemia; Lipitor 10 mg by mouth daily at bedtime. 9. Seasonal ALLERGIES; patient uses Flonase nasal spray and Xyzal 5 mg daily GI prophylaxis: Pepcid DVT prophylaxis: Heparin Prognosis is guarded Discussed with staff
[2022-04-03] MEDS ORDERED: IMMUNE GLOBULIN (GAMMAGARD) 20 GM in EMPTY BAG 1 BAG IV ONE (12:00)
--- NOTE | 2022-04-03 13:17 | FL ---
EXAMINATION TYPE: FL barium swallow w video DATE OF EXAM: 04/03/2022 MODIFIED SWALLOW / DEGLUTITION STUDY CLINICAL HISTORY: Dysphagia. Rule out aspiration. TECHNIQUE: Deglutition study is performed utilizing thin liquid barium, honey thick liquid barium, a nd barium pudding. 1 minutes 17 seconds of fluoro time and 0 images obtained. COMPARISON: None. FINDINGS: The oral and pharyngeal phases show satisfactory delay in initiation with satisfactory prop agation with all modalities tested. Delayed due to patient's underlying medical condition with tremor s. There is aspiration with all modalities tested. IMPRESSION: Multiconsistency aspiration. Please refer to speech therapist notes for further details if necessary.
[2022-04-03 14:54] VITALS: BMI 16.9
--- NOTE | 2022-04-03 15:05 | XR ---
EXAMINATION TYPE: XR chest 1V portable DATE OF EXAM: 04/03/2022 CLINICAL HISTORY: Cough and dysphasia. TECHNIQUE: Single AP portable upright view of the chest is obtained. COMPARISON: Chest x-ray from 4 days earlier FINDINGS: Osseous structures are demineralized. Underlying scoliosis centered in the lumbar spine is partially imaged. There is persistent cardiomegaly. There is new small to tiny bilateral pleural eff usions. New central vascular congestion along with basilar opacities are seen. Contrast from modified barium swallow study is seen in stomach in the left upper quadrant. IMPRESSION: Possible CHF exacerbation and/or fluid overload state with new small to tiny bilateral pl eural effusions. Correlate clinically. New bibasilar opacities could reflect developing acute infiltr ates and/or edema. Progress study advised.
[2022-04-03] MEDS: LISINOPRIL-HCTZ 20-12.5 MG 1 EACH TAB PO SCH ×2 (16:07→21:06)
[2022-04-03] MEDS: PROPRANOLOL LA 60 MG CAP.SA.24H PO SCH (16:07)
[2022-04-03] MEDS: ASPIRIN 81 MG PO SCH (16:07)
--- NOTE | 2022-04-03 16:07 | P.GSCN ---
History of Present Illness Consult date: 04/03/22 History of present illness: CHIEF COMPLAINT: Dysarthria and dysphagia HISTORY OF PRESENT ILLNESS: This is a 86-year-old female who presented to the hospital with slurred speech and difficulty swallowing. She's been diagnosed with a myasthenia gravis exacerbation. She is followed by neurology. She's receiving IVIG. She also is followed by cardiology for A. fib RVR. Is currently on IV heparin. Patient seen by speech therapy and had modified barium swallow study done which didn't show signs of aspiration. They currently have her as nothing by mouth. Surgical service consulted for possible PEG tube placement. Discussed PEG tube placement with patient and family at bedside. Patient is adamant that she does not want a feeding tube placed. PAST MEDICAL HISTORY: See below PAST SURGICAL HISTORY: See below MEDICATIONS: See below ALLERGIES: See below SOCIAL HISTORY: No illicit drug use. REVIEW OF SYSTEMS: CONSTITUTIONAL: Denies fever or chills. HEENT: Denies blurred vision, vision changes, or eye pain. Denies hemoptysis CARDIOVASCULAR: Denies chest pain or pressure. RESPIRATORY: No shortness of breath. GASTROINTESTINAL: See HPI for pertinent findings HEMATOLOGIC: Denies bleeding disorders. GENITOURINARY: Denies any blood in urine or increased urinary frequency. SKIN: Denies pruitis. Denies rash. PHYSICAL EXAM: VITAL SIGNS: Reviewed GENERAL: Well-developed in no acute distress. HEENT: No sclera icterus. Extraocular movements grossly intact. Moist buccal mucosa. Head is atraumatic, normocephalic. No nasal drainage. ABDOMEN: Soft. Nondistended. Nontender NEUROLOGIC: Alert and oriented LABORATORY DATA: WBC is 6.7 Hgb is 10 platelets 138 Sodium 143 potassium 3.4 creatinine 1.07 Albumin 4.4 Elevated troponins IMAGING: Chest x-ray possible CHF exacerbation and/or fluid overload with new bilateral pleural effusions. New bibasilar opacities could reflect developing acute infiltrates and/or edema ASSESSMENT: 1. Myasthenia gravis exacerbation 2. Dysphagia 3. Failed swallow eval with evidence of aspiration 4. Dysarthria PLAN: -EGD with PEG tube placement was offered. At this time patient is declining PEG tube placement -Continue supportive care Thank you for this consultation Physician Insurance Defense Paralegal note has been reviewed by physician. Signing provider agrees with the documented findings, assessment, and plan of care. Past Medical History Past Medical History: Hypertension Additional Past Medical History / Comment(s): tremors History of Any Multi-Drug Resistant Organisms: None Reported Past Surgical History: Cholecystectomy, Hysterectomy Additional Past Surgical History / Comment(s): bital foot surgery and nasal surgery for deviated septum, cataracts, glaucoma stents, mysthanis gravis Past Anesthesia/Blood Transfusion Reactions: No Reported Reaction Past Psychological History: No Psychological Hx Reported Smoking Status: Never smoker Past Alcohol Use History: None Reported Past Drug Use History: None Reported - Past Family History Father Family Medical History: Myocardial Infarction ([place]) Mother Additional Family Medical History / Comment(s): parkinsons Medications and Allergies Home Medications Medication Instructions Recorded Confirmed Type Lisinopril-Hctz 20-12.5 mg 1 tab PO BID@0800,199909/19/13 03/30/22 History [Zestoretic 20-12.5] Primidone [Mysoline] 125 mg PO HS@199909/19/13 03/30/22 History Fish Oil/Dha/Epa [Fish Oil 1,200 1 cap PO BID@0800,199903/23/14 03/30/22 History mg Fish Oil] Fluticasone Nasal [place] [Flonase 2 spray NASAL DAILY@0800 03/28/16 03/30/22 History Nasal [place]] Aspirin [Adult Low Dose Aspirin EC] 81 mg PO DAILY@0800 01/10/17 03/30/22 History Vit C/E/Zn/Coppr/Lutein/Zeaxan 1 tab PO BID@0800,199901/10/17 03/30/22 History [Preservision Areds 2 Softgel] Pyridostigmine [Mestinon] 60 mg PO TID@0800,1200,1600 07/12/20 03/30/22 History Amoxic-Pot Clav 875-125Mg 1 tab PO BID 03/30/22 03/30/22 History [Augmentin 875-125] Atorvastatin [Lipitor] 10 mg PO HS@199903/30/22 03/30/22 History Denosumab [Prolia] 60 mg SQ Q168D 03/30/22 03/30/22 History Furosemide [Lasix] 20 mg PO DAILY@0800 03/30/22 03/30/22 History Lactose-Reduced Food [Boost Plus] 1 can PO W/BRKFST 03/30/22 03/30/22 History Levocetirizine Dihydrochloride 5 mg PO DAILY@79903/30/22 03/30/22 History [Xyzal] Oyster Shell Tab 500mg 1,500 mg PO DAILY@79903/30/22 03/30/22 History Propranolol LA [Inderal LA] 60 mg PO DAILY@79903/30/22 03/30/22 History Sertraline HCl [Zoloft] 50 mg PO DAILY@79903/30/22 03/30/22 History Topiramate [Topamax] 25 mg PO DAILY@79903/30/22 03/30/22 History Topiramate [Topamax] 50 mg PO HS@199903/30/22 03/30/22 History guaiFENesin [Mucinex] 600 mg PO Q12H 03/30/22 03/30/22 History Allergies Allergy/AdvReac Type Severity Reaction Status Date / Time sulfamethoxazole Allergy Rash/Hives Verified 03/30/22 16:44 [From Bactrim] trimethoprim [From Bactrim] Allergy Rash/Hives Verified 03/30/22 16:44 Surgical - Exam Vital Signs Temp Pulse Resp BP Pulse Ox 97 F L 64 16 120/77 98 03/30/22 14:43 03/30/22 14:43 03/30/22 14:43 03/30/22 14:43 03/30/22 14:43 Results - Labs 04/03/22 07:13 04/03/22 07:13 Abnormal Lab Results - Last 24 Hours (Table) 04/03/22 04/03/22 04/03/22 Range/Units 07:13 07:13 07:13 RBC 2.94 L (3.80-5.40) m/uL Hgb 10.0 L (11.4-16.0) gm/dL Hct 30.1 L (34.0-46.0) % MCV 102.5 H (80.0-100.0) fL Plt Count 138 L (150-450) k/uL Lymphocytes # 0.8 L (1.0-4.8) k/uL APTT 61.0 H (22.0-30.0) sec Potassium 3.4 L (3.5-5.1) mmol/L Diabetes panel 04/03/22 Range/Units 07:13 Potassium 3.4 L (3.5-5.1) mmol/L Pituitary panel 04/03/22 Range/Units 07:13 Potassium 3.4 L (3.5-5.1) mmol/L Adrenal panel 04/03/22 Range/Units 07:13 Potassium 3.4 L (3.5-5.1) mmol/L
[2022-04-03] MEDS: PYRIDOSTIGMINE 60 MG TAB PO SCH ×3 (16:08→18:26)
[2022-04-03] MEDS: SERTRALINE 50 MG TAB PO SCH (16:08)
[2022-04-03] MEDS: TOPIRAMATE 25 MG TAB PO SCH ×2 (16:08→21:06)
[2022-04-03 16:11] VITALS: TEMP 97.1
--- NOTE | 2022-04-03 17:02 | P.PN ---
Subjective Progress Note Date: 04/03/[address] Patient initially seen by Dr. Slava Skaggs. Please refer to his note for details. Patient is an 86-year-old female who was diagnosed with myasthenia gravis about 2 or 3 years ago. She presented with progressive head drop. Never had any exacerbation of myasthenia gravis. She has been maintained on Mestinon 60 mg 3 times a day, working very well for her. Patient suffered from Covid infection around 03/01/2022. Patient recovered, but couple weeks after, she started having slowly progressive onset of dysphagia and dysarthria (for the past 2-3 weeks). Patient came to the hospital on 03/30/2022. She was still able to walk, and eat a sandwich in the ER. Patient was started on IVIG for probable my asthenia gravis exacerbation. Shortly after starting IVIG, patient was noted to have some hallucinations, seeing staff like cows, saw her dad. Patient has been progressively getting worse, particularly today. She has completely failed swallow studies. Patient is strict nothing by mouth at this time. She continues to hallucinate as per patient's and daughter. Patient is DO NOT RESUSCITATE. She does not want nasogastric tube and also declined PEG tube placement. Patient's daughter has noticed that she has been staring off in space. Once in a while they can understand, but she is slurring her words. Patient has received all vaccinations including booster dose of mensah virus. Objective - Vital Signs Vital signs: Vital Signs Temp 97.7 F 04/03/22 09:50 Pulse 92 04/03/22 09:50 Resp 20 04/03/22 09:50 BP 209/98 04/03/22 09:50 Pulse Ox 94 L 04/03/22 09:50 FiO2 Intake & Output 04/02/22 04/03/22 04/03/22 18:59 06:59 18:59 Intake Total 594.907 550 93.179 Balance 594.907 550 93.179 Intake: Intake, IV Titration 594.907 550 93.179 Amount Heparin Sod,Pork in 0.45% 144.907 93.179 NaCl 25,000 unit In 0.45 % NaCl 1 250ml.bag @ 12 UNITS/KG/HR 5.225 mls/hr IV .Q24H [facility] Rx#: [id number] Potassium Chloride 10 meq 100 In Water For Injection 1 100ml.bag @ 100 mls/hr IVPB Q1HR [facility] Rx#: [id number] Sodium Chloride 0.9% 1, 450 450 000 ml @ 75 mls/hr IV . [id number] [facility] Rx#:[id number] Other: Voiding Method Toilet Bedpan Bedpan # Voids 0 2 - Exam Patient appears encephalopathic, appears frail, cachectic. She is slightly groggy, slow mentation. Patient knows her name, and that she is in the hospital. Her speech is hoarse and slurred. No aphasia. Her pupils are equal, round and reacting on visual [place] difficult to assess. Face appears symmetric. She does have weakness of the tongue and lower cranial nerves. On muscle strength testing, biceps and triceps and deltoids are normal. Surveyor Instrument Assistant is slightly weak. Hip flexion 4-and ankle dorsiflexion 5 bilaterally. Sensations are equal. - Labs CBC & Chem 7: 04/03/22 07:13 04/03/22 07:13 Labs: Abnormal Lab Results - Last 24 Hours (Table) 04/03/22 04/03/22 04/03/22 Range/Units 07:13 07:13 07:13 RBC 2.94 L (3.80-5.40) m/uL Hgb 10.0 L (11.4-16.0) gm/dL Hct 30.1 L (34.0-46.0) % MCV 102.5 H (80.0-100.0) fL Plt Count 138 L (150-450) k/uL Lymphocytes # 0.8 L (1.0-4.8) k/uL APTT 61.0 H (22.0-30.0) sec Potassium 3.4 L (3.5-5.1) mmol/L Assessment and Plan Assessment: Acute dysarthria and dysphagia for the past 2-3 weeks: Due to Myasthenia Gravis crisis. No acute or subacute ischemic stroke. Myasthenia gravis exacerbation likely triggered due to recent Covid infection. Hypercalcemia New onset atrial fibrillation Slightly elevated troponin History of myasthenia gravis Essential tremor History of Hypertension and hypertension is elevated in our facility. Very hard of hearing Plan: Continue IVIG for 5 days (started on 03/31/2022. Today is day 45). Continue to check NIF and FVC to be evaluated by Respiratory therapist but could not cooperate for examination and per nurse was attempting multiple time. Patient's myasthenia seems to be getting worse with IVIG. On top of it, patient has failed swallow, not able to take her Mestinon, which can make her further worse. I discussed with patient and her family members about placement of NG tube, but patient completely declined. Patient's family witnessed patient's decision. We will check chest x-ray to rule out pneumonia, ABG. Continue IVIG. Start Solu-Medrol 80 mg IV push every 8 hours. Informed family members that delirium can get worse with Solu-Medrol, but is medically necessary at this time. If patient has short of breath, labored breathing or drastic worsening of neurological condition then recommend to be transferred to ICU. CONSIDER PEG TUBE IF CONTINUES TO DYSPHAGIC. Patient declined to feeding. On aspirin 81 mg daily. Patient is on Lipitor 10 mg daily at bedtime Q4 hour neuro checks On cardiac monitoring. She had tachycardia and will defer management to primary team. PT, OT and Speech therapy are consulted For new onset atrial fibrillation and elevated troponin will defer the management to primary team. Consider cardiology consultation. Patient on aspirin. We'll defer the rest of the medical management to primary team. Upon discharge, she needs to follow-up with her neurologist (Dr. Bishop) within 1-2 weeks. Discussed with family in detail. Patient clearly expressed her wishes of DO NOT RESUSCITATE, DO NOT INTUBATE and family agreed. Addendum: Chest x-ray revealed possible CHF exacerbation and/or fluid overload state with new small tiny bilateral pleural effusion. Correlate clinically. Bibasilar opacities could reflect developing acute infiltrates and/or edema. Await ABG. Apparently patient's family has decided patient to be comfort care. ABG cancele d. Time with Patient: Greater than 30
[2022-04-03 18:32] VITALS: BP 144/81
[2022-04-03] MEDS: methylPREDNISolone SOD SUCCI 125 MG/2 ML VIAL IV SCH (18:36)
[2022-04-03] MEDS: HEPARIN SOD,PORK IN 0.45% NACL 25,000 UNIT in 0.45% NACL 1 250ML.BAG IV SCH (19:04)
[2022-04-03] MEDS ORDERED: MORPHINE SULFATE 4 MG/ML SYRINGE IV PRN (20:28)
[2022-04-03] MEDS ORDERED: ATROPINE OPHTH SOLN 1% 5ML BTL SUBLINGUAL PRN (20:28)
[2022-04-03] MEDS ORDERED: SCOPOLAMINE 1 MG/72 HR PATCH TRANSDERM SCH (20:30)
[2022-04-03] MEDS: PRIMIDONE 50 MG TAB PO SCH (21:06)
[2022-04-03] MEDS: FAMOTIDINE 20 MG/2 ML VIAL IV SCH (21:06)
[2022-04-03] MEDS: ATORVASTATIN 10 MG TAB PO SCH (21:06)
[2022-04-04] MEDS: METOPROLOL TARTRATE 5 MG/5 ML VIAL IVP SCH ×2 (00:11→06:30)
[2022-04-04] MEDS: methylPREDNISolone SOD SUCCI 125 MG/2 ML VIAL IV SCH (00:11)
[2022-04-04] MEDS: NITROGLYCERIN OINT 1 INCH/GM PACKET TOPICAL SCH ×2 (00:12→06:30)
[2022-04-04 03:34] VITALS: RESP 17
[2022-04-04] MEDS: DEXTROSE 5%-0.45% NACL 1,000 ML IV SCH (06:30)
[2022-04-04 10:59] VITALS: PULSE 92
[2022-04-04] MEDS ORDERED: IMMUNE GLOBULIN (GAMMAGARD) 10 GM in EMPTY BAG 1 BAG IV ONE (12:00)
--- NOTE | 2022-04-04 19:08 | P.DS ---
Providers Date of admission: 03/30/22 18:00 Attending physician: Hallie Mensah Consults: 03/30/22 17:57 Consult Physician Urgent Consulting Provider: Slava Skaggs Consult Reason/Comments: acute dysarthria, acute dysphagia, possible cva, possible mg exaerbation Do you want consulting provider notified?: Yes 03/31/22 19:01 Consult Physician Routine Consulting Provider: Hitesh Davenport Consult Reason/Comments: New-onset atrial fibrillation Do you want consulting provider notified?: Yes 04/03/22 13:35 Consult Physician Urgent Consulting Provider: Juan Ramon Fontaine Consult Reason/Comments: Possible peg tube placement Do you want consulting provider notified?: Yes Primary care physician: Martin Crespo Hospital Course: diagnoses: 1. Acute onset dysarthria/dysphagia; secondary to myasthenia gravis exacerbation. Patient declined PEG tube placement and eventual she was made hospice care and comfort care 2. Dysphagia, secondary to above ; with Severe calories protein malnutrition 3. New onset atrial fibrillation; 4. Elevated troponin; 5. Hypercalcemia; 6. Essential tremors; 7. Hypertension; 8. Hyperlipidemia; 9. Seasonal ALLERGIES; Hospital course: 86-year-old female with past medical history of myasthenia gravis, hypertension presents emergency Department with slurred speech. She reports that she has had progressive worsening speech difficulties and swallowing difficulties for the past 2 weeks. She has had trouble eating and drinking. She went and saw Dr. Crespo when day earlierin office who recommended that she be evaluated at the hospital as there was concern for stroke. in the hospital patient evaluated by neurologist and found to have myasthenia gravis exacerbation she was treated with IV immunoglobulin and steroids with no significant improvement. Patient also failed swallow evaluation related to her dysphagia, PEG tube or other forms of nutrition is recommended however patient and declined any form of alternative nutrition and entral or PARENTERAL,I talked to the yesterday Mr. Leyva/. Percy and he requested to talk to hospice care, however patient overnight got worse and family decided to make her Comfort Care. This morning patient was obtunded but comfortable Patient eventually today, please refer to nursing note for more details Exam prior to been -Gen: patient is aobtunded, comfortable, unresponsive CVS: S1-S2, RRR, no murmur Lungs: B/L CTA, no wheezing Abdomen: soft, no distention, no tenderness, positive bowel sounds Extremity: no leg edema or induration Time spent more than 35 minutes Patient Condition at Discharge: Stable Plan - Discharge Summary Discharge Rx Participant: Yes New Discharge Prescriptions: No Action Primidone [Mysoline] 125 mg PO HS@1999 Lisinopril-Hctz 20-12.5 mg [Zestoretic 20-12.5] 1 tab PO BID@0800,1999 Fish Oil/Dha/Epa [Fish Oil 1,200 mg Fish Oil] 1 cap PO BID@0800,1999 Fluticasone Nasal Gaffney [Flonase Nasal Gaffney] 2 spray NASAL DAILY@0800 Vit C/E/Zn/Coppr/Lutein/Zeaxan [Preservision Areds 2 Softgel] 1 tab PO BID@ 0800,1999 Aspirin [Adult Low Dose Aspirin EC] 81 mg PO DAILY@0800 Pyridostigmine [Mestinon] 60 mg PO TID@0800,1200,1600 Topiramate [Topamax] 25 mg PO DAILY@0800 Denosumab [Prolia] 60 mg SQ Q168D Amoxic-Pot Clav 875-125Mg [Augmentin 875-125] 1 tab PO BID Oyster Shell Tab 500mg 1,500 mg PO DAILY@0800 Furosemide [Lasix] 20 mg PO DAILY@0800 Topiramate [Topamax] 50 mg PO HS@1999 Sertraline HCl [Zoloft] 50 mg PO DAILY@0800 Propranolol LA [Inderal LA] 60 mg PO DAILY@0800 guaiFENesin [Mucinex] 600 mg PO Q12H Levocetirizine Dihydrochloride [Xyzal] 5 mg PO DAILY@0800 Lactose-Reduced Food [Boost Plus] 1 can PO W/BRKFST Atorvastatin [Lipitor] 10 mg PO HS@1999 Discharge Medication List Lisinopril-Hctz 20-12.5 mg [Zestoretic 20-12.5] 1 tab PO BID@0800,199909/19/13 [History] Primidone [Mysoline] 125 mg PO HS@199909/19/13 [History] Fish Oil/Dha/Epa [Fish Oil 1,200 mg Fish Oil] 1 cap PO BID@0800,199903/23/14 [History] Fluticasone Nasal Gaffney [Flonase Nasal Gaffney] 2 spray NASAL DAILY@0800 03/28/16 [History] Aspirin [Adult Low Dose Aspirin EC] 81 mg PO DAILY@0800 01/10/17 [History] Vit C/E/Zn/Coppr/Lutein/Zeaxan [Preservision Areds 2 Softgel] 1 tab PO BID@0800,199901/10/17 [History] Pyridostigmine [Mestinon] 60 mg PO TID@0800,1200,1600 07/12/20 [History] Amoxic-Pot Clav 875-125Mg [Augmentin 875-125] 1 tab PO BID 03/30/22 [History] Atorvastatin [Lipitor] 10 mg PO HS@199903/30/22 [History] Denosumab [Prolia] 60 mg SQ Q168D 03/30/22 [History] Furosemide [Lasix] 20 mg PO DAILY@0803/30/22 [History] Lactose-Reduced Food [Boost Plus] 1 can PO W/BRKFST 03/30/22 [History] Levocetirizine Dihydrochloride [Xyzal] 5 mg PO DAILY@0803/30/22 [History] Oyster Shell Tab 500mg 1,500 mg PO DAILY@0803/30/22 [History] Propranolol LA [Inderal LA] 60 mg PO DAILY@0803/30/22 [History] Sertraline HCl [Zoloft] 50 mg PO DAILY@0800 03/30/22 [History] Topiramate [Topamax] 25 mg PO DAILY@79903/30/22 [History] Topiramate [Topamax] 50 mg PO HS@199903/30/22 [History] guaiFENesin [Mucinex] 600 mg PO Q12H 03/30/22 [History] Follow up Appointment(s)/Referral(s): Martin Crespo MD [Primary Care Provider] - 1-2 days Discharge Disposition: - Preliminary Cause of Preliminary Cause of : mysthenia gravis exacerbation
--- NOTE | 2022-04-12 11:07 | CDI ---
Documentation Clarification Form Date: 04/12/2022 10:35:10 AM From: Vika Arambula RN, CCDS Email: [email or web address] Admit Date: 03/30/2022 6:00:00 PM Patient Name: Denia Rodriguez Visit Number: [id number] Discharge Date: 04/04/2022 10:50:00 AM ATTENTION: The Clinical Documentation Specialists (CDI) and [facility] Coding Staff appreciate your assistance in clarifying documentation. Please respond to the clarification below the line at the bottom and electronically sign. The CDI & [facility] Coding staff will review the response and follow-up if needed. Please note: Queries are made part of the Legal Health Record. If you have any questions, please contact the author of this message via ITS. Dr. Jimenez E Sheet Your patient had a myasthenia gravis exacerbation, low pulse ox and was placed on a non-rebreather mask. Based on this information and the findings below, is there an additional diagnosis that is clinically appropriate for this patient? History/Risk Factors: Myasthenia Gravis found to be in exacerbation. Hypertension. She came in with chief complaint of difficulty breathing, congestion, difficulty swallowing, slurred speech and weakness. Developed new onset atrial fibrillation. Clinical Indicators: 04/03 Nursing Note: "The patient has progressed with tachypnea and shallow breaths. The patient continues on the HF nonrebreather at 15L." 04/03 Neurology: "Continue to check NIF and FVC. To be evaluated by respiratory therapist but patient could not cooperate for examination and per nurse was attempted multiple times." 04/03 Barium swallow: Multi-consistency aspiration 04/03 CXR: Possible CHF exacerbation and/or fluid overload state with new small to tiny bilateral pleural effusions. Correlate clinically. New bibasilar opacities could reflect developing acute infiltrates and/or edema 04/03 Vital signs: RR 26 and labored. 04/03 Pulse oximetry: 90% Breathing assessment: inspiratory and expiratory wheeze and diminished breath sounds per 01/02 nursing assessment Treatment: 15L non-rebreather on 04/03 and 04/04. IVIG and IV Solumedrol for MG exacerbation. Is there an additional diagnosis that is clinically appropriate for this patient? [ ] Acute Hypoxic Respiratory Failure (pO2 <60 mm Hg or SpO2 <91% on room air) [ ] Other Diagnosis, please specify [ ] Unable to determine Acute Hypoxic Respiratory Failure MTDD
--- NOTE | 2022-04-12 11:35 | CDI ---
Documentation Clarification Form Date: 04/12/2022 11:10:03 AM From: Vika Arambula RN, CCDS Email: [email or web address] Admit Date: 03/30/2022 6:00:00 PM Patient Name: Denia Rodriguez Visit Number: [id number] Discharge Date: 04/04/2022 10:50:00 AM ATTENTION: The Clinical Documentation Specialists (CDI) and [facility] Coding Staff appreciate your assistance in clarifying documentation. Please respond to the clarification below the line at the bottom and electronically sign. The CDI & [facility] Coding staff will review the response and follow-up if needed. Please note: Queries are made part of the Legal Health Record. If you have any questions, please contact the author of this message via ITS. Dr. Jimenez Sheet Encephalopathic is documented in the 04/03 Neurology note. Additional clarification regarding the type of encephalopathy is requested. History/Risk Factors: Myasthenia Gravis found to be in exacerbation. Hypertension. She came in with chief complaint of difficulty breathing, congestion, difficulty swallowing, slurred speech and weakness. Developed new onset atrial fibrillation, confusion and hallucinations. Clinical Indicators: 04/03 Neurology note: "Shortly after starting IVIG, patient was noted to have some hallucinations, seeing staff like cows, saw her dad. Patient has been progressively getting worse, particularly today. 04/03 IM: "Patient prefers we should wait until tomorrow to assess her mentation as she is more confused today, he might be considering hospice too." 04/03 Nursing note: "confused, rambling speech" Treatment: supplemental oxygen. Topamax on 03/30. IVIG 03/30-04/03. 04/03 Neurology Consult: "Patient appears encephalopathic, appears frail, cachectic. She is slightly groggy, slow mentation." Please clarify the type of encephalopathy, if known: [ ] Metabolic Encephalopathy [ ] Toxic Encephalopathy [ ] Other, please specify [ ] Unable to determine multifactorial: Metabolic and toxic Encephalopathy MTDD
== END 2022-04-04 10:50 | disposition expired | DRG 56 ==
LOC: EC 14:30 → 3SCARD 18:00
PROVIDERS: ADMIT Hospitalist; ATTEND Hospitalist
PROC: 30233S1 Transfusion of Nonautologous Globulin into Peripheral Vein, Percutaneous Approach (ICD-10-PCS; principal; 2022-03-31)
DX: G70.01 Myasthenia gravis with (acute) exacerbation (principal); E43 Unspecified severe protein-calorie malnutrition; J96.01 Acute respiratory failure with hypoxia; G92.9 Unspecified toxic encephalopathy; G93.41 Metabolic encephalopathy; R64 Cachexia; I48.19 Other persistent atrial fibrillation; Z68.1 Body mass index [BMI] 19.9 or less, adult; R13.13 Dysphagia, pharyngeal phase; E86.0 Dehydration; G31.9 Degenerative disease of nervous system, unspecified; Z66 Do not resuscitate; Z51.5 Encounter for palliative care; R47.1 Dysarthria and anarthria; E78.5 Hyperlipidemia, unspecified; E83.52 Hypercalcemia; G25.0 Essential tremor; I10 Essential (primary) hypertension; I34.0 Nonrheumatic mitral (valve) insufficiency; H91.90 Unspecified hearing loss, unspecified ear; R00.0 Tachycardia, unspecified; R47.81 Slurred speech; J30.2 Other seasonal allergic rhinitis; I44.4 Left anterior fascicular block; H40.9 Unspecified glaucoma; R77.8 Other specified abnormalities of plasma proteins; Z79.82 Long term (current) use of aspirin; Z79.899 Other long term (current) drug therapy; Z86.16 Personal history of COVID-19; Z71.3 Dietary counseling and surveillance; Z88.2 Allergy status to sulfonamides; Z82.0 Family history of epilepsy and other diseases of the nervous system
CPT/HCPCS: 36415; 70450; 70551; 71045; 71046; 74230; 80048; 80053; 81001; 82330; 84132; 84443; 84484; 85025; 85610; 85730; 93005; 94760; 96361; 96365; 96366; 99285